=== PATIENT | male | born 1935 | race Caucasian/White ===

== ENCOUNTER 2017-04-16 22:38 | Inpatient (IN) | payer MEDICARE ==
[~2017-04-16] VITALS: Ht 170.2 cm; Wt 76.9 kg
[2017-04-16] MEDS ORDERED: MELA3TAB2 PO (22:57)
[2017-04-16] MEDS ORDERED: DIVA125C PO ×2 (22:57)
[2017-04-16] MEDS ORDERED: ACET325T9 PO ×2 (22:57)
[2017-04-16] MEDS ORDERED: MEMA28CA PO (22:57)
[2017-04-16] MEDS ORDERED: TRAZ50TA15 PO ×2 (22:57)
[2017-04-16 23:29] LABS: BASO # 0.1 x10^3/uL (0.0-0.2); BASO % 1 % (0-3); EOS # 0.5 x10^3/uL (0.0-0.7); EOS % 8 % (0-3); HEMATOCRIT 42.3 % (39.0-53.0); HEMOGLOBIN 14.6 g/dL (13.0-17.5); LYMPH # 1.9 x10^3/uL (1.0-4.8); LYMPH % 29 % (24-48); MEAN CORPUSCULAR HEMOGLOBIN 32 pg (25-35); MEAN CORPUSCULAR HGB CONC 35 g/dL (31-37); MEAN CORPUSCULAR VOLUME 93 fL (79-100); MONO # 0.7 x10^3/uL (0.0-1.1); MONO % 11 % (0-9); NEUT # 3.4 x10^3uL (1.8-7.7); NEUT % 52 % (31-73); PLATELET COUNT 202 x10^3/uL (140-400); RED BLOOD COUNT 4.54 x10^6/uL (4.30-5.70); RED CELL DISTRIBUTION WIDTH 12.7 % (11.5-14.5); WHITE BLOOD COUNT 6.6 x10^3/uL (4.0-11.0)
[2017-04-16 23:35] LABS: BILIRUBIN,URINE NEG (NEG); CLARITY,URINE CLEAR; COLOR,URINE YELLOW; GLUCOSE,URINE NEG (NEG); NITRITE,URINE NEG (NEG); UROBILINOGEN,URINE 0.2 mg/dL (0.2 mg/dL)
[2017-04-16 23:42] LABS: ALBUMIN/GLOBULIN RATIO 1.2 (1.0-1.7); CALCIUM 9.3 mg/dL (8.5-10.1); CREATININE 1.3 mg/dL (0.7-1.3); GFR 52.9; MAGNESIUM 2.2 mg/dL (1.8-2.4); POTASSIUM 3.9 mmol/L (3.5-5.1); TOTAL BILIRUBIN 0.5 mg/dL (0.2-1.0); TOTAL PROTEIN 7.4 g/dL (6.4-8.2)
--- NOTE | 2017-04-16 23:43 | PHYS DOC ---
Adult General Chief Complaint Chief Complaint: PSYCH EVALUATION HPI HPI Patient is a 81-year-old gentleman who presents here today for medical clearance for admission to the [facility] psychiatric unit for increased agitation and aggressive behavior. Patient without any other complaints at this time. No fevers shakes chills nausea vomiting diarrhea chest pain terns breath cough cold rhinorrhea. Review of Systems Review of Systems Review of systems: Constitutional: Denies fever or chills Eyes: Denies change in visual acuity, redness, or eye pain HENT: Denies nasal congestion or sore throat Respiratory: Denies cough or shortness of breath All other systems were reviewed and found to be within normal limits, except as documented in this note. Physical exam: Constitutional: Well developed, well nourished, no acute distress, non-toxic appearance. HENT: Normocephalic, atraumatic, bilateral external ears normal, nose normal. Eyes: PERRLA, EOMI, conjunctiva normal, no discharge. Neck: Normal range of motion, no tenderness, supple, no stridor. Cardiovascular: Heart rate regular rhythm, Lungs & Thorax: Bilateral breath sounds clear to auscultation Abdomen: No abdominal distention. Skin: Warm, dry, no erythema, no rash. Back: Normal spinal curvature Extremities: No tenderness, no cyanosis, no clubbing, ROM intact, no edema. Neurologic: Alert and oriented normal motor function, normal sensory function, no focal deficits noted. Psychologic: Affect normal, Patient's ER physical exam was most remarkable: EKG as interpreted by ER physician reveals: Normal sinus rhythm at a heart rate of [address]-T wave abnormalities. No STEMI Chest x-ray as interpreted by ER physician reveals: Labs reviewed: Assessment and plan: 1. This is a 7-year-old gentleman who presents here today for medical clearance for admission for increased aggressive behavior to the [facility] health unit. Patient is medically cleared for admission. Current Patient Data Lab Results Laboratory Tests Test 04/16/17 23:00 04/16/17 23:05 Urine Collection Type Unknown Urine Color Yellow Urine Clarity Clear Urine pH 5.5 Urine Specific [place] 1.025 Urine Protein 30 mg/dl (NEG-TRACE) Urine Glucose (UA) Neg mg/dL (NEG) Urine Ketones (Stick) 15 mg/dL (NEG) Urine Blood Neg (NEG) Urine Nitrite Neg (NEG) Urine Bilirubin Neg (NEG) Urine Urobilinogen Dipstick 0.2 mg/dL (0.2 mg/dL) Urine Leukocyte Esterase Small (NEG) White Blood Count 6.6 x10^3/uL (4.0-11.0) Red Blood Count 4.54 x10^6/uL (4.30-5.70) Hemoglobin 14.6 g/dL (13.0-17.5) Hematocrit 42.3 % (39.0-53.0) Mean Corpuscular Volume 93 fL (79-100) Mean Corpuscular Hemoglobin 32 pg (25-35) Mean Corpuscular Hemoglobin Concent 35 g/dL (31-37) Red Cell Distribution Width 12.7 % (11.5-14.5) Platelet Count 202 x10^3/uL (140-400) Neutrophils (%) (Auto) 52 % (31-73) Lymphocytes (%) (Auto) 29 % (24-48) Monocytes (%) (Auto) 11 % (0-9) H Eosinophils (%) (Auto) 8 % (0-3) H Basophils (%) (Auto) 1 % (0-3) Neutrophils # (Auto) 3.4 x10^3uL (1.8-7.7) Lymphocytes # (Auto) 1.9 x10^3/uL (1.0-4.8) Monocytes # (Auto) 0.7 x10^3/uL (0.0-1.1) Eosinophils # (Auto) 0.5 x10^3/uL (0.0-0.7) Basophils # (Auto) 0.1 x10^3/uL (0.0-0.2) EKG EKG [] Radiology/Procedures Radiology/Procedures [] Course & Med Decision Making Course & Med Decision Making Pertinent Labs and Imaging studies reviewed. (See chart for details) [] Dragon Disclaimer Dragon Disclaimer This electronic medical record was generated, in whole or in part, using a voice recognition dictation system. Departure Departure: Impression: Primary Impression: Aggressive behavior Disposition: ADMITTED INPATIENT Admitting Physician: Other Condition: STABLE Referrals: CHRISTY ACEVES (PCP) KARELY FREDERICK MD Apr 16, 2017 23:43
[2017-04-17] MEDS ORDERED: METHYL SALICYLATE/MENTHOL TOPICAL OINTMENT 29GM TUBE. TP PRN (00:45)
[2017-04-17 00:59] VITALS: BP 131/73
[2017-04-17] MEDS ORDERED: ACETAMINOPHEN 325 MG TABLET PO PRN (01:00)
[2017-04-17 01:04] LABS: VAL ACID 59 mcg/mL (50-100)
--- NOTE | 2017-04-17 01:08 | EKG ---
[address] [address] Test Date: 2017-04-16 Test Time: 23:30:40 Pat Name: TIMO BANKS Department: Room: [address] [place] [address] Gender: M Telephone Advice Nurse: NELIA : 1935 Requested By: KARELY FREDERICK Order Number: [id number] Reading MD: Alireza Woo Measurements Intervals [place] Rate: 61 P: 124 NH: 242 QRS: 25 QRSD: 68 T: 26 QT: 378 QTc: 382 Interpretive Statements SINUS RHYTHM PROLONGED NH INTERVAL ABNORMAL ECG Electronically Signed On 04-26-2017 16:29:03 [employer] by Alireza Woo
[2017-04-17] MEDS: ACETAMINOPHEN 325 MG TABLET PO SCH ×3 (01:25→19:28)
[2017-04-17] MEDS: traZODone 50 MG TABLET. PO SCH ×4 (01:25→19:27)
[2017-04-17] MEDS: MELATONIN 3 MG TABLET PO SCH ×2 (01:25→19:27)
[2017-04-17] MEDS: DIVALPROEX 125 MG CAP.SPRINK PO SCH ×3 (01:25→19:27)
[2017-04-17 05:50] VITALS: BP 111/60
[2017-04-17] MEDS: MEMANTINE 10 MG TABLET. PO SCH ×2 (08:25→19:28)
[2017-04-17 14:39] LABS: THYROID STIM HORMONE (TSH) 2.469 uIU/mL (0.358-3.740)
[2017-04-17 15:34] VITALS: BP 119/73
--- NOTE | 2017-04-17 18:45 | PDOC ---
Exam Note: Brando Note: Please also refer to the separate dictated note~for this date of service dictated separately.~Patient seen individually. Discussed the patient with Nursing staff reviewed the chart.~Reviewed interim history and current functioning. Reviewed vital signs,~Labs/ Radiology~and current medications noted below. Continue current treatment with the changes noted in the dictated addendum note Assessment: Vital Signs: Vital Signs Date Time Temp Pulse Resp B/P (MAP) Pulse Ox O2 Delivery O2 Flow Rate FiO2 04/17/17 15:34 97.9 71 19 119/73 (88) 98 04/16/17 22:50 Room Air Labs: Laboratory Tests Test 04/16/17 23:00 04/16/17 23:05 Urine Collection Type Unknown Urine Color Yellow Urine Clarity Clear Urine pH 5.5 Urine Specific [place] 1.025 Urine Protein 30 mg/dl (NEG-TRACE) Urine Glucose (UA) Neg mg/dL (NEG) Urine Ketones (Stick) 15 mg/dL (NEG) Urine Blood Neg (NEG) Urine Nitrite Neg (NEG) Urine Bilirubin Neg (NEG) Urine Urobilinogen Dipstick 0.2 mg/dL (0.2 mg/dL) Urine Leukocyte Esterase Small (NEG) White Blood Count 6.6 x10^3/uL (4.0-11.0) Red Blood Count 4.54 x10^6/uL (4.30-5.70) Hemoglobin 14.6 g/dL (13.0-17.5) Hematocrit 42.3 % (39.0-53.0) Mean Corpuscular Volume 93 fL (79-100) Mean Corpuscular Hemoglobin 32 pg (25-35) Mean Corpuscular Hemoglobin Concent 35 g/dL (31-37) Red Cell Distribution Width 12.7 % (11.5-14.5) Platelet Count 202 x10^3/uL (140-400) Neutrophils (%) (Auto) 52 % (31-73) Lymphocytes (%) (Auto) 29 % (24-48) Monocytes (%) (Auto) 11 % (0-9) H Eosinophils (%) (Auto) 8 % (0-3) H Basophils (%) (Auto) 1 % (0-3) Neutrophils # (Auto) 3.4 x10^3uL (1.8-7.7) Lymphocytes # (Auto) 1.9 x10^3/uL (1.0-4.8) Monocytes # (Auto) 0.7 x10^3/uL (0.0-1.1) Eosinophils # (Auto) 0.5 x10^3/uL (0.0-0.7) Basophils # (Auto) 0.1 x10^3/uL (0.0-0.2) Sodium Level 139 mmol/L (136-145) Potassium Level 3.9 mmol/L (3.5-5.1) Chloride Level 102 mmol/L (98-107) Carbon Dioxide Level 34 mmol/L (21-32) H Anion Gap 3 (6-14) L Blood Urea Nitrogen 20 mg/dL (8-26) Creatinine 1.3 mg/dL (0.7-1.3) Estimated GFR (Cockcroft-Gault) 52.9 BUN/Creatinine Ratio 15 (6-20) Glucose Level 85 mg/dL (70-99) Calcium Level 9.3 mg/dL (8.5-10.1) Magnesium Level 2.2 mg/dL (1.8-2.4) Iron Level 63 ug/dL (65-175) L Total Iron Binding Capacity 258 ug/dL (250-450) Iron Saturation 24 % (15-34) Total Bilirubin 0.5 mg/dL (0.2-1.0) Aspartate Amino Transferase (AST) 23 U/L (15-37) Alanine Aminotransferase (ALT) 36 U/L (16-63) Alkaline Phosphatase 57 U/L (46-116) Total Protein 7.4 g/dL (6.4-8.2) Albumin 4.0 g/dL (3.4-5.0) Albumin/Globulin Ratio 1.2 (1.0-1.7) Triglycerides Level 122 mg/dL (0-150) Cholesterol Level 181 mg/dL (0-200) LDL Cholesterol, Calculated 113 mg/dL (0-100) H VLDL Cholesterol, Calculated 24 mg/dL (0-40) Non-HDL Cholesterol Calculated 137 mg/dL (0-129) H HDL Cholesterol 44 mg/dL (40-60) Cholesterol/HDL Ratio 4.0 Vitamin B12 Level 987 pg/mL (247-911) H 25-Hydroxy Vitamin D Total 33.2 ng/mL (30-100) Thyroid Stimulating Hormone (TSH) 2.469 uIU/mL (0.358-3.740) Valproic Acid Level 59 mcg/mL (50-100) Valproic Acid Last Dose Date 04/17/2017 Valproic Acid Last Dose Time 0900 Current Medications: Meds: Current Medications Multi-Ingredient Ointment (Analgesic [place]) 1 shanon PRN QID PRN TP MUSCLE PAIN; Start 04/17/17 at 00:45 Acetaminophen (Tylenol) 650 mg BID PO Last administered on 04/17/17 08:25; Start 04/17/17 at 01:00 Acetaminophen (Tylenol) 650 mg PRN Q8HRS PRN PO PAIN / TEMP; Start 04/17/17 at 01:00 Divalproex Sodium (Depakote Sprinkles) 250 mg DAILY PO Last administered on 08:25; Start 04/17/17 at 09:00 Divalproex Sodium (Depakote Sprinkles) 375 mg HS PO Last administered on 01:25; Start 04/17/17 at 01:00 Trazodone HCl (Desyrel) 75 mg BID@1300,1600 PO Last administered on 04/17/17 16:44; Start 04/17/17 at 13:00 Trazodone HCl (Desyrel) 75 mg HS PO Last administered on 04/17/17 01:25; Start 04/17/17 at 01:00 Melatonin 3 mg HS PO Last administered on 04/17/17 01:25; Start 04/17/17 at 01:00 Memantine (Namenda) 10 mg BID PO Last administered on 04/17/17 08:25; Start 04/17/17 at 09:00 Olanzapine (ZyPREXA ZYDIS) 2.5 mg PRN Q2HR PRN PO PSYCHOSIS; Start 04/17/17 at 10:00 Active Scripts Active Reported Tylenol (Acetaminophen) 325 Mg Tablet 650 Mg PO BID Tylenol (Acetaminophen) 325 Mg Tablet 650 Mg PO PRN Q8HRS PRN Trazodone Hcl 50 Mg Tablet 75 Mg PO BID@1300,1600 Trazodone Hcl 50 Mg Tablet 75 Mg PO HS Namenda Xr (Memantine Hcl) 28 Mg Cap.spr.24 28 Mg PO DAILY Melatonin 3 Mg Tablet 3 Mg PO HS Depakote Sprinkle (Divalproex Sodium) 125 Mg Cap.sprink 375 Mg PO HS Depakote Sprinkle (Divalproex Sodium) 125 Mg Cap.sprink 250 Mg PO DAILY I have reviewed the current psychotropics carefully including drug interactions. Risk benefit ratio favors no change other than as noted in my dictated progress note. 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
[2017-04-17 19:12] LABS: HEMOGLOBIN A1C 5.3 % (4.8-5.6)
[2017-04-17] MEDS: MIRTAZAPINE 7.5 MG TABLET. PO SCH (19:31)
--- NOTE | 2017-04-17 19:56 | HP ---
ADMIT DATE: 04/17/2017 PSYCHIATRIC ADMISSION HISTORY/EVALUATION This note covers elements not covered in my initial note of 04/17/2017. IDENTIFYING DATA: The patient is an 81-year-old male referred to us from [facility] by Dr. Sanjuana Asher, his primary care physician and Dr. Jayjay Abbott, outpatient psychiatrist on account of worsening confusion, being verbally and physically aggressive to staff, exit seeking, pocketing his medications, unprovoked aggression and aggressive with cares. The patient has failed outpatient psychiatric interventions and adjustments in his psychotropics. Had to be on one-on-one status, started on Depakote, all of which has failed over the past 1 or 2 months, resulting in this referral. CHIEF COMPLAINT: "Go there." The patient is quite disorganized, unable to formulate any specific thought processes as I met with him. HISTORY OF PRESENT ILLNESS: The patient has a history of dementia, Alzheimer's vascular type. He has been residing at [facility] [place] for some time. Over the past 1 or 2 months it is noted, he has been verbally, physically aggressive, exit seeking. He has had some sleep and appetite changes, appeared paranoid, depressed, anxious. Dr. Abbott attempted adjustments in his psychotropics, failed all of this resulting in this referral and had been on one-on-one status before the referral. No clear history of bipolar disorder, suicidal or homicidal ideation. PAST PSYCHIATRIC HISTORY: As above. MEDICAL HISTORY: Positive for dysuria, CA prostate. ALLERGIES: NOVOCAIN. CODE STATUS: DNR. DIET: Regular, takes his medications hidden in ice cream. GAIT: Ambulates ad trice, but unsteady. CURRENT PSYCHOTROPICS: Depakote 125 mg in the morning and 375 mg at night, melatonin 3 mg at bedtime, trazodone 75 mg at bedtime and 75 mg b.i.d. Valproic acid level is 59. FAMILY HISTORY: Noncontributory. SOCIAL HISTORY: No history of alcohol, drug abuse, physical, sexual or elder abuse history is noted. Not known to be a perpetrator. MENTAL STATUS EXAMINATION: The patient was seen individually the evening of 04/17/2017. He is oblivious of his surroundings, unable to respond even to his name. Rambling and mumbling in his speech. Insight, judgment, recent and remote memory, attention, concentration, fund of knowledge poor, consistent with his diagnosis. No active suicidal or homicidal ideation. REACTION TO HOSPITALIZATION: The patient oblivious of this. IMPRESSION: Major neurocognitive disorder, Alzheimer, vascular with depression, delusion, behavioral disturbance; anxiety disorder, unspecified; impulse control disorder, unspecified. Rest diagnoses as above. PLAN: Admit to Geropsychiatry Unit at [facility]. I will see the patient daily individually from a psychiatric standpoint, medical followup per Dr. Brown/Dr. Brito. The patient slept just a quarter hour last night and we will start him on Remeron 7.5 mg p.o. at bedtime. Also, start Zoloft 25 mg daily for 3 days, then 50 mg a day. Valproic acid level therapeutic at 59. We will attempt to reduce the scheduled trazodone over time. BOBO VALENZUELA MD DR: REGULO/abiodun JOB#: [id number] / [id number]
[2017-04-17 20:09] LABS: T3 TOTAL 71 ng/dL (71-180); THYROXINE 7.1 ug/dL (4.5-12.0)
--- NOTE | 2017-04-17 21:19 | PDOC ---
Exam Note: Brando Note: Please also refer to the separate dictated note~for this date of service dictated separately.~Patient seen individually. Discussed the patient with Nursing staff reviewed the chart.~Reviewed interim history and current functioning. Reviewed vital signs,~Labs/ Radiology~and current medications noted below. Continue current treatment with the changes noted in the dictated addendum note Assessment: Vital Signs: Vital Signs Date Time Temp Pulse Resp B/P (MAP) Pulse Ox O2 Delivery O2 Flow Rate FiO2 04/17/17 15:34 97.9 71 19 119/73 (88) 98 04/16/17 22:50 Room Air Labs: Laboratory Tests Test 04/16/17 23:00 04/16/17 23:05 Urine Collection Type Unknown Urine Color Yellow Urine Clarity Clear Urine pH 5.5 Urine Specific [place] 1.025 Urine Protein 30 mg/dl (NEG-TRACE) Urine Glucose (UA) Neg mg/dL (NEG) Urine Ketones (Stick) 15 mg/dL (NEG) Urine Blood Neg (NEG) Urine Nitrite Neg (NEG) Urine Bilirubin Neg (NEG) Urine Urobilinogen Dipstick 0.2 mg/dL (0.2 mg/dL) Urine Leukocyte Esterase Small (NEG) White Blood Count 6.6 x10^3/uL (4.0-11.0) Red Blood Count 4.54 x10^6/uL (4.30-5.70) Hemoglobin 14.6 g/dL (13.0-17.5) Hematocrit 42.3 % (39.0-53.0) Mean Corpuscular Volume 93 fL (79-100) Mean Corpuscular Hemoglobin 32 pg (25-35) Mean Corpuscular Hemoglobin Concent 35 g/dL (31-37) Red Cell Distribution Width 12.7 % (11.5-14.5) Platelet Count 202 x10^3/uL (140-400) Neutrophils (%) (Auto) 52 % (31-73) Lymphocytes (%) (Auto) 29 % (24-48) Monocytes (%) (Auto) 11 % (0-9) H Eosinophils (%) (Auto) 8 % (0-3) H Basophils (%) (Auto) 1 % (0-3) Neutrophils # (Auto) 3.4 x10^3uL (1.8-7.7) Lymphocytes # (Auto) 1.9 x10^3/uL (1.0-4.8) Monocytes # (Auto) 0.7 x10^3/uL (0.0-1.1) Eosinophils # (Auto) 0.5 x10^3/uL (0.0-0.7) Basophils # (Auto) 0.1 x10^3/uL (0.0-0.2) Sodium Level 139 mmol/L (136-145) Potassium Level 3.9 mmol/L (3.5-5.1) Chloride Level 102 mmol/L (98-107) Carbon Dioxide Level 34 mmol/L (21-32) H Anion Gap 3 (6-14) L Blood Urea Nitrogen 20 mg/dL (8-26) Creatinine 1.3 mg/dL (0.7-1.3) Estimated GFR (Cockcroft-Gault) 52.9 BUN/Creatinine Ratio 15 (6-20) Glucose Level 85 mg/dL (70-99) Hemoglobin A1c 5.3 % (4.8-5.6) Calcium Level 9.3 mg/dL (8.5-10.1) Magnesium Level 2.2 mg/dL (1.8-2.4) Iron Level 63 ug/dL (65-175) L Total Iron Binding Capacity 258 ug/dL (250-450) Iron Saturation 24 % (15-34) Total Bilirubin 0.5 mg/dL (0.2-1.0) Aspartate Amino Transferase (AST) 23 U/L (15-37) Alanine Aminotransferase (ALT) 36 U/L (16-63) Alkaline Phosphatase 57 U/L (46-116) Total Protein 7.4 g/dL (6.4-8.2) Albumin 4.0 g/dL (3.4-5.0) Albumin/Globulin Ratio 1.2 (1.0-1.7) Triglycerides Level 122 mg/dL (0-150) Cholesterol Level 181 mg/dL (0-200) LDL Cholesterol, Calculated 113 mg/dL (0-100) H VLDL Cholesterol, Calculated 24 mg/dL (0-40) Non-HDL Cholesterol Calculated 137 mg/dL (0-129) H HDL Cholesterol 44 mg/dL (40-60) Cholesterol/HDL Ratio 4.0 Vitamin B12 Level 987 pg/mL (247-911) H 25-Hydroxy Vitamin D Total 33.2 ng/mL (30-100) Thyroid Stimulating Hormone (TSH) 2.469 uIU/mL (0.358-3.740) Thyroxine (T4) 7.1 ug/dL (4.5-12.0) Total Triiodothyronine (TT3) 71 ng/dL (71-180) Valproic Acid Level 59 mcg/mL (50-100) Valproic Acid Last Dose Date 04/17/2017 Valproic Acid Last Dose Time 0900 Rapid Plasma Reagin Pending Current Medications: Meds: Current Medications Multi-Ingredient Ointment (Analgesic [place]) 1 shanon PRN QID PRN TP MUSCLE PAIN; Start 04/17/17 at 00:45 Acetaminophen (Tylenol) 650 mg BID PO Last administered on 04/17/17 19:28; Start 04/17/17 at 01:00 Acetaminophen (Tylenol) 650 mg PRN Q8HRS PRN PO PAIN / TEMP; Start 04/17/17 at 01:00 Divalproex Sodium (Depakote Sprinkles) 250 mg DAILY PO Last administered on 08:25; Start 04/17/17 at 09:00 Divalproex Sodium (Depakote Sprinkles) 375 mg HS PO Last administered on 19:27; Start 04/17/17 at 01:00 Trazodone HCl (Desyrel) 75 mg BID@1300,1600 PO Last administered on 04/17/17 16:44; Start 04/17/17 at 13:00 Trazodone HCl (Desyrel) 75 mg HS PO Last administered on 04/17/17 19:27; Start 04/17/17 at 01:00 Melatonin 3 mg HS PO Last administered on 04/17/17 19:27; Start 04/17/17 at 01:00 Memantine (Namenda) 10 mg BID PO Last administered on 04/17/17 19:28; Start 04/17/17 at 09:00 Olanzapine (ZyPREXA ZYDIS) 2.5 mg PRN Q2HR PRN PO PSYCHOSIS; Start 04/17/17 at 10:00 Sertraline HCl (Zoloft) 25 mg DAILY PO ; Start 04/18/17 at 09:00; Stop at 23:00 Sertraline HCl (Zoloft) 50 mg DAILY PO ; Start 04/21/17 at 09:00 Mirtazapine (Remeron) 7.5 mg QHS PO Last administered on 04/17/17t 19:31; Start 04/17/17 at 21:00 Active Scripts Active Reported Tylenol (Acetaminophen) 325 Mg Tablet 650 Mg PO BID Tylenol (Acetaminophen) 325 Mg Tablet 650 Mg PO PRN Q8HRS PRN Trazodone Hcl 50 Mg Tablet 75 Mg PO BID@1300,1600 Trazodone Hcl 50 Mg Tablet 75 Mg PO HS Namenda Xr (Memantine Hcl) 28 Mg Cap.spr.24 28 Mg PO DAILY Melatonin 3 Mg Tablet 3 Mg PO HS Depakote Sprinkle (Divalproex Sodium) 125 Mg Cap.sprink 375 Mg PO HS Depakote Sprinkle (Divalproex Sodium) 125 Mg Cap.sprink 250 Mg PO DAILY I have reviewed the current psychotropics carefully including drug interactions. Risk benefit ratio favors no change other than as noted in my dictated progress note. Diagnosis: Problems: (1) Aggressive behavior (2) Anxiety disorder (3) Impulse control disorder (4) Dementia, vascular, with depression (5) Dementia, vascular, with delusions (6) Dementia in Alzheimer's disease with depression (7) Dementia in Alzheimer's disease with delusions BOBO VALENZUELA MD Apr 17, 2017 21:19
--- NOTE | 2017-04-18 03:17 | CONS ---
DATE OF CONSULTATION: 04/17/2017 REASON FOR CONSULTATION: Medical management. HISTORY OF PRESENT ILLNESS: The patient is an 81-year-old male patient, a resident at [facility], who was admitted on account of being verbally abusive and physically aggressive, exit seeking, pocketing his medication all this in a background of dementia with behavioral disturbances and delusions. PAST MEDICAL HISTORY: Significant for prostate cancer, urinary incontinence. PAST SURGICAL HISTORY: Unobtainable. PAST PSYCHIATRIC HISTORY: Significant for Alzheimer's dementia, unprovoked aggression, throwing things at people, generalized anxiety disorder. ALLERGIES: HE IS ALLERGIC TO PROCAINE. MEDICATIONS: He is currently on Tylenol 650 mg every 8 hours twice a day scheduled, divalproex sodium 250 mg daily, divalproex 375 mg at bedtime, melatonin 3 mg at bedtime, Namenda extended release 28 mg once a day, trazodone 75 mg at bedtime and trazodone 75 mg p.o. b.i.d. FAMILY HISTORY: Noncontributory. SOCIAL HISTORY: He is apparently a resident at [facility]. He does not smoke, drink alcohol or use any recreational drugs. PHYSICAL EXAMINATION: GENERAL: When I examined him, the patient was sitting comfortably in his chair in no apparent respiratory distress. He was pale, but no jaundice, cyanosis, or thyromegaly. No jugular venous distension. No limb edema. VITAL SIGNS: His heart rate was 71, blood pressure was 119/73, temperature was 97.9, respiratory rate was 19 and oxygen saturation was 98% on room air. HEAD, EYES, EARS. NOSE AND THROAT: Showed normocephalic, atraumatic. NECK: Supple. HEART: Showed normal first and second heart sounds with no gallop, rub or murmur. CHEST: Clear to auscultation. No crepitation or rhonchi. ABDOMEN: Scaphoid, soft, nontender. NEUROLOGIC: He was very confused, almost in a manic state with a flight of ideas; however, all his cranial nerves are intact. EXTREMITIES: He moves extremities without difficulty, ambulates without assistance or assistive device. Strong smell of urine as he probably seems to be incontinent. LABORATORY DATA: He had lab work done, which showed that his white cell count was 6600, hemoglobin 14.5, hematocrit 42, MCV 93 and platelet count of 202,000. His chemistry showed a serum sodium 139, potassium 3.9, chloride 102, bicarbonate 34, anion gap of 3, BUN 20, creatinine 1.3. Estimated GFR was 53 mL per minute. His glucose was 85. Calcium was 9.3. Magnesium 2.2. Serum iron was 63. TIBC was 258 and percent saturation was 24%. His total bilirubin, AST, ALT, alkaline phosphatase are normal. Total protein was 7.4, albumin 4. His serum triglycerides were 122. Total cholesterol 181, LDL was 113, VLDL was 24 and HDL cholesterol was 44. The ratio was only 4. His vitamin B12 was 987 pg/mL and 25-hydroxy vitamin D was 33.2 ng/mL. His TSH was 2.469. Urinalysis showed the urine was yellow, clear with a pH of 5.5, specific gravity of . Small amount of protein. The urine was negative for glucose, trace of ketones, negative for blood, negative for nitrite, bilirubin and small amount of leukocyte esterase. His toxicology screen showed that the valproic acid was 59 mg/mL, which is well within therapeutic range. IMPRESSION: In summary, this is an 81-year-old male patient who was admitted on account of verbally and physically aggressive, exit seeking, pocketing medication, attention seeking. His past medical history is significant for prostate cancer, urinary retention and dysuria. All his lab work seems to be well within acceptable range. He seemed to be medically stable. Thank you, Dr. Blue, for allowing me to participate in the care of this patient. PAUL MCKINLEY MD DR: HOWIE/abiodun JOB#: [id number] / [id number]
[2017-04-18 05:41] VITALS: BP 111/72
[2017-04-18] MEDS: MEMANTINE 10 MG TABLET. PO SCH ×2 (07:47→19:43)
[2017-04-18] MEDS: DIVALPROEX 125 MG CAP.SPRINK PO SCH ×2 (07:47→19:43)
[2017-04-18] MEDS: ACETAMINOPHEN 325 MG TABLET PO SCH ×2 (07:48→19:44)
[2017-04-18] MEDS: SERTRALINE 25 MG TABLET. PO SCH (07:59)
[2017-04-18] MEDS ORDERED: SERTRALINE 25 MG TABLET. PO SCH (14:00)
[2017-04-18] MEDS: traZODone 50 MG TABLET. PO SCH ×3 (14:02→19:45)
[2017-04-18] MEDS: QUEtiapine 25 MG TABLET. PO SCH (14:02)
[2017-04-18 15:54] VITALS: BP 107/68
[2017-04-18] MEDS: MELATONIN 3 MG TABLET PO SCH (19:40)
[2017-04-18] MEDS: MIRTAZAPINE 7.5 MG TABLET. PO SCH (19:43)
--- NOTE | 2017-04-18 20:00 | PDOC ---
Exam Note: Brando Note: Please also refer to the separate dictated note~for this date of service dictated separately.~Patient seen individually. Discussed the patient with Nursing staff reviewed the chart.~Reviewed interim history and current functioning. Reviewed vital signs,~Labs/ Radiology~and current medications noted below. Continue current treatment with the changes noted in the dictated addendum note Assessment: Vital Signs: Vital Signs Date Time Temp Pulse Resp B/P (MAP) Pulse Ox O2 Delivery O2 Flow Rate FiO2 04/18/17 15:54 97.0 76 18 107/68 (81) 97 Room Air I&O Intake and Output 04/18/17 07:00 Intake Total 960 ml Balance 960 ml Intake Oral 960 ml Current Medications: Meds: Current Medications Multi-Ingredient Ointment (Analgesic [place]) 1 shanon PRN QID PRN TP MUSCLE PAIN; Start 04/17/17 at 00:45 Acetaminophen (Tylenol) 650 mg BID PO Last administered on 04/18/17 19:44; Start 04/17/17 at 01:00 Acetaminophen (Tylenol) 650 mg PRN Q8HRS PRN PO PAIN / TEMP; Start 04/17/17 at 01:00 Divalproex Sodium (Depakote Sprinkles) 250 mg DAILY PO Last administered on 07:47; Start 04/17/17 at 09:00 Divalproex Sodium (Depakote Sprinkles) 375 mg HS PO Last administered on 19:43; Start 04/17/17 at 01:00 Trazodone HCl (Desyrel) 75 mg BID@1300,1600 PO Last administered on 04/17/17 16:44; Start 04/17/17 at 13:00; Stop 04/18/17 at 10:25; Status DC Trazodone HCl (Desyrel) 75 mg HS PO Last administered on 04/18/17 19:45; Start 04/17/17 at 01:00 Melatonin 3 mg HS PO Last administered on 04/18/17 19:40; Start 04/17/17 at 01:00 Memantine (Namenda) 10 mg BID PO Last administered on 04/18/17 19:43; Start 04/17/17 at 09:00 Olanzapine (ZyPREXA ZYDIS) 2.5 mg PRN Q2HR PRN PO PSYCHOSIS Last administered on 04/18/17 17:54; Start 04/17/17 at 10:00 Sertraline HCl (Zoloft) 25 mg DAILY PO Last administered on 04/18/17 07:59; Start 04/18/17 at 09:00; Stop 04/20/17 at 23:00 Sertraline HCl (Zoloft) 50 mg DAILY PO ; Start 04/21/17 at 09:00 Mirtazapine (Remeron) 7.5 mg QHS PO Last administered on 04/18/17 19:43; Start 04/17/17 at 21:00 Trazodone HCl (Desyrel) 50 mg BID@1300,1600 PO Last administered on 04/18/17 16:26; Start 04/18/17 at 13:00 Sertraline HCl (Zoloft) 12.5 mg BID92 PO ; Start 04/18/17 at 14:00; Status Cancel Quetiapine Fumarate (SEROquel) 12.5 mg BID92 PO Last administered on 14:02; Start 04/18/17 at 14:00 Active Scripts Active Reported Tylenol (Acetaminophen) 325 Mg Tablet 650 Mg PO BID Tylenol (Acetaminophen) 325 Mg Tablet 650 Mg PO PRN Q8HRS PRN Trazodone Hcl 50 Mg Tablet 75 Mg PO BID@1300,1600 Trazodone Hcl 50 Mg Tablet 75 Mg PO HS Namenda Xr (Memantine Hcl) 28 Mg Cap.spr.24 28 Mg PO DAILY Melatonin 3 Mg Tablet 3 Mg PO HS Depakote Sprinkle (Divalproex Sodium) 125 Mg Cap.sprink 375 Mg PO HS Depakote Sprinkle (Divalproex Sodium) 125 Mg Cap.sprink 250 Mg PO DAILY I have reviewed the current psychotropics carefully including drug interactions. Risk benefit ratio favors no change other than as noted in my dictated progress note. Diagnosis: Problems: (1) Aggressive behavior (2) Anxiety disorder (3) Impulse control disorder (4) Dementia, vascular, with depression (5) Dementia, vascular, with delusions (6) Dementia in Alzheimer's disease with depression (7) Dementia in Alzheimer's disease with delusions BOBO VALENZUELA MD Apr 18, 2017 20:00
[2017-04-19 05:39] VITALS: BP 102/60
[2017-04-19] MEDS: ACETAMINOPHEN 325 MG TABLET PO SCH ×2 (07:39→19:05)
[2017-04-19] MEDS: DIVALPROEX 125 MG CAP.SPRINK PO SCH ×2 (07:40→19:04)
[2017-04-19] MEDS: QUEtiapine 25 MG TABLET. PO SCH ×2 (07:40→13:13)
[2017-04-19] MEDS: MEMANTINE 10 MG TABLET. PO SCH ×2 (07:40→19:05)
[2017-04-19] MEDS: SERTRALINE 25 MG TABLET. PO SCH (07:41)
[2017-04-19] MEDS: traZODone 50 MG TABLET. PO SCH ×3 (13:12→19:05)
[2017-04-19 16:09] VITALS: BP 101/74
[2017-04-19] MEDS: MELATONIN 3 MG TABLET PO SCH (19:04)
[2017-04-19] MEDS ORDERED: MIRTAZAPINE 15 MG TABLET PO SCH (21:00)
--- NOTE | 2017-04-19 22:12 | PDOC ---
Exam Note: Brando Note: Please also refer to the separate dictated note~for this date of service dictated separately.~Patient seen individually. Discussed the patient with Nursing staff reviewed the chart.~Reviewed interim history and current functioning. Reviewed vital signs,~Labs/ Radiology~and current medications noted below. Continue current treatment with the changes noted in the dictated addendum note Assessment: Vital Signs: Vital Signs Date Time Temp Pulse Resp B/P (MAP) Pulse Ox O2 Delivery O2 Flow Rate FiO2 04/19/17 16:09 97.4 62 19 101/74 (83) 100 04/18/17 15:54 Room Air I&O Intake and Output 04/19/17 07:00 Intake Total 480 ml Balance 480 ml Intake Oral 480 ml Current Medications: Meds: Current Medications Multi-Ingredient Ointment (Analgesic [place]) 1 shanon PRN QID PRN TP MUSCLE PAIN; Start 04/17/17 at 00:45 Acetaminophen (Tylenol) 650 mg BID PO Last administered on 04/19/17 19:05; Start 04/17/17 at 01:00 Acetaminophen (Tylenol) 650 mg PRN Q8HRS PRN PO PAIN / TEMP; Start 04/17/17 at 01:00 Divalproex Sodium (Depakote Sprinkles) 250 mg DAILY PO Last administered on 07:40; Start 04/17/17 at 09:00 Divalproex Sodium (Depakote Sprinkles) 375 mg HS PO Last administered on 19:04; Start 04/17/17 at 01:00 Trazodone HCl (Desyrel) 75 mg BID@1300,1600 PO Last administered on 04/17/17 16:44; Start 04/17/17 at 13:00; Stop 04/18/17 at 10:25; Status DC Trazodone HCl (Desyrel) 75 mg HS PO Last administered on 04/19/17 19:05; Start 04/17/17 at 01:00 Melatonin 3 mg HS PO Last administered on 04/19/17 19:04; Start 04/17/17 at 01:00 Memantine (Namenda) 10 mg BID PO Last administered on 04/19/17 19:05; Start 04/17/17 at 09:00 Olanzapine (ZyPREXA ZYDIS) 2.5 mg PRN Q2HR PRN PO PSYCHOSIS Last administered on 04/19/17 20:21; Start 04/17/17 at 10:00 Sertraline HCl (Zoloft) 25 mg DAILY PO Last administered on 04/19/17 07:41; Start 04/18/17 at 09:00; Stop 04/20/17 at 23:00 Sertraline HCl (Zoloft) 50 mg DAILY PO ; Start 04/21/17 at 09:00 Mirtazapine (Remeron) 7.5 mg QHS PO Last administered on 04/18/17 19:43; Start 04/17/17 at 21:00; Stop 04/19/17 at 18:36; Status DC Trazodone HCl (Desyrel) 50 mg BID@1300,1600 PO Last administered on 04/19/17 15:54; Start 04/18/17 at 13:00 Sertraline HCl (Zoloft) 12.5 mg BID92 PO ; Start 04/18/17 at 14:00; Status Cancel Quetiapine Fumarate (SEROquel) 12.5 mg BID92 PO Last administered on 13:13; Start 04/18/17 at 14:00 Mirtazapine (Remeron) 15 mg QHS PO Last administered on 04/19/17 19:12; Start 04/19/17 at 21:00 Active Scripts Active Reported Tylenol (Acetaminophen) 325 Mg Tablet 650 Mg PO BID Tylenol (Acetaminophen) 325 Mg Tablet 650 Mg PO PRN Q8HRS PRN Trazodone Hcl 50 Mg Tablet 75 Mg PO BID@1300,1600 Trazodone Hcl 50 Mg Tablet 75 Mg PO HS Namenda Xr (Memantine Hcl) 28 Mg Cap.spr.24 28 Mg PO DAILY Melatonin 3 Mg Tablet 3 Mg PO HS Depakote Sprinkle (Divalproex Sodium) 125 Mg Cap.sprink 375 Mg PO HS Depakote Sprinkle (Divalproex Sodium) 125 Mg Cap.sprink 250 Mg PO DAILY I have reviewed the current psychotropics carefully including drug interactions. Risk benefit ratio favors no change other than as noted in my dictated progress note. Diagnosis: Problems: (1) Aggressive behavior (2) Anxiety disorder (3) Impulse control disorder (4) Dementia, vascular, with depression (5) Dementia, vascular, with delusions (6) Dementia in Alzheimer's disease with depression (7) Dementia in Alzheimer's disease with delusions BOBO VALENZUELA MD Apr 19, 2017 22:12
--- NOTE | 2017-04-19 22:25 | PN ---
DATE: 04/18/2017 This is a late entry, covers the elements not covered in my initial note, 04/18/2017. SUBJECTIVE: The patient staffed at a treatment team meeting morning of 04/18/2017, seen individually evening of 04/18/2017. He remains confused, irritable, verbally aggressive, paranoid, refuses to get up in the morning, refuses often to open his eyes, often singing in the hallway, which is positive. REVIEW OF SYSTEMS: No CV, , pulmonary, eye, ENT system symptoms on review. Reliability poor. MENTAL STATUS EXAM: Oriented to himself. Insight, judgment, recent and remote memory, attention, concentration, fund of knowledge poor, consistent with his diagnosis as mentioned in my initial note. IMPRESSION: Major neurocognitive disorder, Alzheimer, vascular with depression, delusion, behavioral disturbance. Rest unchanged from initial note. PLAN: The patient is currently on trazodone 75 mg b.i.d. and 75 mg at bedtime. We will reduce the daytime b.i.d. dosage to 50 mg b.i.d. Start Seroquel 12.5 mg at 9 a.m. and 2 p.m. consequent to his paranoia, mood lability, change the Namenda XR to Namenda 10 mg twice a day. Maintain rest of the psychotropics including Depakote and valproic acid level is 59. Adjust further as clinically indicated. MAN Adina VALENZUELA MD DR: REGULO/abiodun JOB#: [id number] / [id number]
[2017-04-20 05:37] VITALS: BP 145/77
[2017-04-20] MEDS: DIVALPROEX 125 MG CAP.SPRINK PO SCH ×2 (08:31→19:46)
[2017-04-20] MEDS: MEMANTINE 10 MG TABLET. PO SCH ×2 (08:31→19:47)
[2017-04-20] MEDS: ACETAMINOPHEN 325 MG TABLET PO SCH ×2 (08:31→19:46)
[2017-04-20] MEDS: QUEtiapine 25 MG TABLET. PO SCH ×2 (08:31→13:18)
[2017-04-20] MEDS: SERTRALINE 25 MG TABLET. PO SCH (08:31)
[2017-04-20] MEDS: traZODone 50 MG TABLET. PO SCH ×3 (13:18→19:47)
[2017-04-20 16:03] VITALS: BP 119/71
[2017-04-20] MEDS: MELATONIN 3 MG TABLET PO SCH (19:46)
[2017-04-20] MEDS: AMITRIPTYLINE HCL 25 MG TABLET PO SCH (19:48)
--- NOTE | 2017-04-20 21:07 | PDOC ---
Exam Note: Brando Note: Please also refer to the separate dictated note~for this date of service dictated separately.~Patient seen individually. Discussed the patient with Nursing staff reviewed the chart.~Reviewed interim history and current functioning. Reviewed vital signs,~Labs/ Radiology~and current medications noted below. Continue current treatment with the changes noted in the dictated addendum note Assessment: Vital Signs: Vital Signs Date Time Temp Pulse Resp B/P (MAP) Pulse Ox O2 Delivery O2 Flow Rate FiO2 04/20/17 16:03 97.8 101 20 119/71 (87) 94 04/18/17 15:54 Room Air I&O Intake and Output 04/20/17 07:00 Intake Total 1200 ml Balance 1200 ml Intake Oral 1200 ml Current Medications: Meds: Current Medications Multi-Ingredient Ointment (Analgesic [place]) 1 shanon PRN QID PRN TP MUSCLE PAIN; Start 04/17/17 at 00:45 Acetaminophen (Tylenol) 650 mg BID PO Last administered on 04/20/17 19:46; Start 04/17/17 at 01:00 Acetaminophen (Tylenol) 650 mg PRN Q8HRS PRN PO PAIN / TEMP; Start 04/17/17 at 01:00 Divalproex Sodium (Depakote Sprinkles) 250 mg DAILY PO Last administered on 08:31; Start 04/17/17 at 09:00 Divalproex Sodium (Depakote Sprinkles) 375 mg HS PO Last administered on 19:46; Start 04/17/17 at 01:00 Trazodone HCl (Desyrel) 75 mg BID@1300,1600 PO Last administered on 04/17/17 16:44; Start 04/17/17 at 13:00; Stop 04/18/17 at 10:25; Status DC Trazodone HCl (Desyrel) 75 mg HS PO Last administered on 04/20/17 19:47; Start 04/17/17 at 01:00 Melatonin 3 mg HS PO Last administered on 04/20/17 19:46; Start 04/17/17 at 01:00 Memantine (Namenda) 10 mg BID PO Last administered on 04/20/17 19:47; Start 04/17/17 at 09:00 Olanzapine (ZyPREXA ZYDIS) 2.5 mg PRN Q2HR PRN PO PSYCHOSIS Last administered on 04/19/17 22:56; Start 04/17/17 at 10:00 Sertraline HCl (Zoloft) 25 mg DAILY PO Last administered on 04/20/17 08:31; Start 04/18/17 at 09:00; Stop 04/20/17 at 23:00 Sertraline HCl (Zoloft) 50 mg DAILY PO ; Start 04/21/17 at 09:00 Mirtazapine (Remeron) 7.5 mg QHS PO Last administered on 04/18/17 19:43; Start 04/17/17 at 21:00; Stop 04/19/17 at 18:36; Status DC Trazodone HCl (Desyrel) 50 mg BID@1300,1600 PO Last administered on 04/20/17 16:28; Start 04/18/17 at 13:00 Sertraline HCl (Zoloft) 12.5 mg BID92 PO ; Start 04/18/17 at 14:00; Status Cancel Quetiapine Fumarate (SEROquel) 12.5 mg BID92 PO Last administered on 13:18; Start 04/18/17 at 14:00 Mirtazapine (Remeron) 15 mg QHS PO Last administered on 04/19/17 19:12; Start 04/19/17 at 21:00; Stop 04/20/17 at 17:41; Status DC Amitriptyline HCl (Elavil) 25 mg QHS PO Last administered on 04/20/17 19:48; Start 04/20/17 at 21:00 Active Scripts Active Reported Tylenol (Acetaminophen) 325 Mg Tablet 650 Mg PO BID Tylenol (Acetaminophen) 325 Mg Tablet 650 Mg PO PRN Q8HRS PRN Trazodone Hcl 50 Mg Tablet 75 Mg PO BID@1300,1600 Trazodone Hcl 50 Mg Tablet 75 Mg PO HS Namenda Xr (Memantine Hcl) 28 Mg Cap.spr.24 28 Mg PO DAILY Melatonin 3 Mg Tablet 3 Mg PO HS Depakote Sprinkle (Divalproex Sodium) 125 Mg Cap.sprink 375 Mg PO HS Depakote Sprinkle (Divalproex Sodium) 125 Mg Cap.sprink 250 Mg PO DAILY I have reviewed the current psychotropics carefully including drug interactions. Risk benefit ratio favors no change other than as noted in my dictated progress note. Diagnosis: Problems: (1) Aggressive behavior (2) Anxiety disorder (3) Impulse control disorder (4) Dementia, vascular, with depression (5) Dementia, vascular, with delusions (6) Dementia in Alzheimer's disease with depression (7) Dementia in Alzheimer's disease with delusions BOBO VALENZUELA MD Apr 20, 2017 21:07
[2017-04-21 06:18] VITALS: BP 142/73
[2017-04-21] MEDS: SERTRALINE 50 MG TABLET. PO SCH (11:55)
[2017-04-21] MEDS: DIVALPROEX 125 MG CAP.SPRINK PO SCH ×2 (11:55→19:26)
[2017-04-21] MEDS: traZODone 50 MG TABLET. PO SCH ×4 (11:55→19:26)
[2017-04-21] MEDS: QUEtiapine 25 MG TABLET. PO SCH ×2 (11:55→15:43)
[2017-04-21] MEDS: ACETAMINOPHEN 325 MG TABLET PO SCH ×2 (11:55→19:27)
[2017-04-21] MEDS: MEMANTINE 10 MG TABLET. PO SCH ×2 (11:55→19:27)
[2017-04-21 15:55] VITALS: BP 105/64
--- NOTE | 2017-04-21 18:36 | PN ---
DATE: 04/20/2017 This is a late entry, covers the elements not covered in my initial note 04/20/2017. I met with the patient in the evening of 04/20/2017. The patient did not sleep at all the previous evening, agitated, pacing, hitting the doors, wandering, quite restless in the morning. REVIEW OF SYSTEMS: No CV, , pulmonary, eye, ENT system symptoms on review. Reliability poor. MENTAL STATUS EXAM: Oriented to himself. Insight, judgment, recent and remote memory, attention, concentration, fund of knowledge poor, consistent with his diagnosis mentioned in my initial note. IMPRESSION: Major neurocognitive disorder, Alzheimer, vascular with delusion, depression, behavioral disturbance. Rest unchanged. PLAN: Change Remeron to Elavil 25 mg at bedtime to help with insomnia and anxiety. Rest unchanged from initial note. MAN Adina VALENZUELA MD DR: REGULO/abiodun JOB#: [id number] / [id number]
--- NOTE | 2017-04-21 18:37 | PN ---
DATE: 04/19/2017 PSYCHIATRIC PROGRESS NOTE This is a late entry for 04/19/2017 covers elements not covered in my initial note of 04/19/2017. SUBJECTIVE: I met with the patient in the evening of 04/19/2017. He was quite agitated the previous evening, slept just 4-3/4 hours, wandering, singing in the hallways, done better during the day on 04/19/2017, asking for ice cream. REVIEW OF SYSTEMS: No CV, , pulmonary, eye, ENT system symptoms on review. Reliability poor. MENTAL STATUS EXAM: Oriented to himself. Insight, judgment, recent and remote memory, attention, concentration, fund of knowledge poor, consistent with his diagnosis as mentioned in my initial note. IMPRESSION: Major neurocognitive disorder, Alzheimer's, vascular with delusion, depression, and behavioral disturbance. Rest unchanged. PLAN: Increase Remeron from 7.5 mg at bedtime to 15 mg at bedtime. Rest unchanged per the initial note. MAN Adina VALENZUELA MD DR: REGULO/abiodun JOB#: [id number] / [id number]
[2017-04-21] MEDS: MELATONIN 3 MG TABLET PO SCH (19:27)
[2017-04-21] MEDS: AMITRIPTYLINE HCL 25 MG TABLET PO SCH (19:27)
--- NOTE | 2017-04-21 20:10 | PDOC ---
Exam Note: Brando Note: Please also refer to the separate dictated note~for this date of service dictated separately.~Patient seen individually. Discussed the patient with Nursing staff reviewed the chart.~Reviewed interim history and current functioning. Reviewed vital signs,~Labs/ Radiology~and current medications noted below. Continue current treatment with the changes noted in the dictated addendum note Assessment: Vital Signs: Vital Signs Date Time Temp Pulse Resp B/P (MAP) Pulse Ox O2 Delivery O2 Flow Rate FiO2 04/21/17 15:55 97.2 90 18 105/64 (78) 99 04/18/17 15:54 Room Air I&O Intake and Output 04/21/17 07:00 Intake Total 1080 ml Balance 1080 ml Intake Oral 1080 ml Current Medications: Meds: Current Medications Multi-Ingredient Ointment (Analgesic [place]) 1 shanon PRN QID PRN TP MUSCLE PAIN; Start 04/17/17 at 00:45 Acetaminophen (Tylenol) 650 mg BID PO Last administered on 04/21/17 19:27; Start 04/17/17 at 01:00 Acetaminophen (Tylenol) 650 mg PRN Q8HRS PRN PO PAIN / TEMP; Start 04/17/17 at 01:00 Divalproex Sodium (Depakote Sprinkles) 250 mg DAILY PO Last administered on 11:55; Start 04/17/17 at 09:00 Divalproex Sodium (Depakote Sprinkles) 375 mg HS PO Last administered on 19:26; Start 04/17/17 at 01:00 Trazodone HCl (Desyrel) 75 mg BID@1300,1600 PO Last administered on 04/17/17 16:44; Start 04/17/17 at 13:00; Stop 04/18/17 at 10:25; Status DC Trazodone HCl (Desyrel) 75 mg HS PO Last administered on 04/21/17 19:26; Start 04/17/17 at 01:00 Melatonin 3 mg HS PO Last administered on 04/21/17 19:27; Start 04/17/17 at 01:00 Memantine (Namenda) 10 mg BID PO Last administered on 04/21/17 19:27; Start 04/17/17 at 09:00 Olanzapine (ZyPREXA ZYDIS) 2.5 mg PRN Q2HR PRN PO PSYCHOSIS Last administered on 04/19/17 22:56; Start 04/17/17 at 10:00 Sertraline HCl (Zoloft) 25 mg DAILY PO Last administered on 04/20/17 08:31; Start 04/18/17 at 09:00; Stop 04/20/17 at 23:00; Status DC Sertraline HCl (Zoloft) 50 mg DAILY PO Last administered on 04/21/17 11:55; Start 04/21/17 at 09:00 Mirtazapine (Remeron) 7.5 mg QHS PO Last administered on 04/18/17 19:43; Start 04/17/17 at 21:00; Stop 04/19/17 at 18:36; Status DC Trazodone HCl (Desyrel) 50 mg BID@1300,1600 PO Last administered on 04/21/17 16:43; Start 04/18/17 at 13:00 Sertraline HCl (Zoloft) 12.5 mg BID92 PO ; Start 04/18/17 at 14:00; Status Cancel Quetiapine Fumarate (SEROquel) 12.5 mg BID92 PO Last administered on 15:43; Start 04/18/17 at 14:00 Mirtazapine (Remeron) 15 mg QHS PO Last administered on 04/19/17 19:12; Start 04/19/17 at 21:00; Stop 04/20/17 at 17:41; Status DC Amitriptyline HCl (Elavil) 25 mg QHS PO Last administered on 04/21/17 19:27; Start 04/20/17 at 21:00 Active Scripts Active Reported Tylenol (Acetaminophen) 325 Mg Tablet 650 Mg PO BID Tylenol (Acetaminophen) 325 Mg Tablet 650 Mg PO PRN Q8HRS PRN Trazodone Hcl 50 Mg Tablet 75 Mg PO BID@1300,1600 Trazodone Hcl 50 Mg Tablet 75 Mg PO HS Namenda Xr (Memantine Hcl) 28 Mg Cap.spr.24 28 Mg PO DAILY Melatonin 3 Mg Tablet 3 Mg PO HS Depakote Sprinkle (Divalproex Sodium) 125 Mg Cap.sprink 375 Mg PO HS Depakote Sprinkle (Divalproex Sodium) 125 Mg Cap.sprink 250 Mg PO DAILY I have reviewed the current psychotropics carefully including drug interactions. Risk benefit ratio favors no change other than as noted in my dictated progress note. Diagnosis: Problems: (1) Aggressive behavior (2) Anxiety disorder (3) Impulse control disorder (4) Dementia, vascular, with depression (5) Dementia, vascular, with delusions (6) Dementia in Alzheimer's disease with depression (7) Dementia in Alzheimer's disease with delusions BOBO VALENZUELA MD Apr 21, 2017 20:10
[2017-04-22 05:46] VITALS: BP 130/77
[2017-04-22 08:00] LABS: BASO # 0.1 x10^3/uL (0.0-0.2); BASO % 1 % (0-3); EOS # 0.6 x10^3/uL (0.0-0.7); EOS % 5 % (0-3); HEMOGLOBIN 15.4 g/dL (13.0-17.5); LYMPH # 1.9 x10^3/uL (1.0-4.8); LYMPH % 16 % (24-48); MEAN CORPUSCULAR HEMOGLOBIN 32 pg (25-35); MEAN CORPUSCULAR HGB CONC 34 g/dL (31-37); MEAN CORPUSCULAR VOLUME 94 fL (79-100); MONO # 1.3 x10^3/uL (0.0-1.1); MONO % 12 % (0-9); NEUT # 7.8 x10^3uL (1.8-7.7); NEUT % 67 % (31-73); PLATELET COUNT 203 x10^3/uL (140-400); RED BLOOD COUNT 4.79 x10^6/uL (4.30-5.70); RED CELL DISTRIBUTION WIDTH 12.7 % (11.5-14.5); WHITE BLOOD COUNT 11.7 x10^3/uL (4.0-11.0)
[2017-04-22] MEDS: MEMANTINE 10 MG TABLET. PO SCH ×2 (08:11→19:23)
[2017-04-22] MEDS: QUEtiapine 25 MG TABLET. PO SCH ×2 (08:12→13:17)
[2017-04-22] MEDS: SERTRALINE 50 MG TABLET. PO SCH (08:12)
[2017-04-22] MEDS: ACETAMINOPHEN 325 MG TABLET PO SCH ×2 (08:13→19:22)
[2017-04-22] MEDS: DIVALPROEX 125 MG CAP.SPRINK PO SCH ×2 (08:13→19:22)
[2017-04-22 08:31] LABS: ALBUMIN/GLOBULIN RATIO 1.1 (1.0-1.7); CALCIUM 9.5 mg/dL (8.5-10.1); CREATININE 1.3 mg/dL (0.7-1.3); GFR 52.9; POTASSIUM 4.6 mmol/L (3.5-5.1); TOTAL BILIRUBIN 0.6 mg/dL (0.2-1.0); TOTAL PROTEIN 7.7 g/dL (6.4-8.2)
--- NOTE | 2017-04-22 12:22 | PN ---
DATE: 04/21/2017 PSYCHIATRIC PROGRESS NOTE This is a late entry for 04/21/2017 covers elements not covered in my initial note of 04/21/2017. SUBJECTIVE: I met with the patient evening of 04/21/2017. The patient had a good evening the previous evening, slept 7-1/4 hours, slept until about 11 a.m. He seems to be making up on his sleep, which he had not slept for a couple of days before that and the amitriptyline seems to be very helpful. Morning of 04/21/2017 per nursing report, he was "grumpy" agitated, but less aggressive after he received his a.m. medications, little irritable during the music group. REVIEW OF SYSTEMS: No CV, , pulmonary, eye, ENT system symptoms on review. Reliability poor. MENTAL STATUS EXAM: Oriented to himself. Insight, judgment, recent and remote memory, attention, concentration, fund of knowledge poor, consistent with his diagnosis mentioned in my initial note. IMPRESSION: Major neurocognitive disorder, Alzheimer, vascular with delusion, depression, behavioral disturbance. Rest unchanged. PLAN: Continue current psychotropics mentioned in my initial note, like to see how he does now that he is sleeping better before we increase the Seroquel or Zoloft. Maintain Namenda, Depakote, melatonin, trazodone, amitriptyline for now. MAN Adina VALENZUELA MD DR: REGULO/abiodun JOB#: [id number] / [id number]
[2017-04-22] MEDS: traZODone 50 MG TABLET. PO SCH ×3 (13:17→19:23)
[2017-04-22 14:06] LABS: % BANDS 4 % (0-9); % BASOS 1 % (0-3); % LYMPHS 11 % (24-48); % MONOS 16 % (0-10); % SEGS 68 % (35-66); PLT ESTIMATE ADEQUATE (ADEQUATE)
[2017-04-22 15:15] LABS: BASO # 0.1 x10^3/uL (0.0-0.2); BASO % 1 % (0-3); EOS # 0.5 x10^3/uL (0.0-0.7); EOS % 6 % (0-3); HEMATOCRIT 41.5 % (39.0-53.0); HEMOGLOBIN 14.4 g/dL (13.0-17.5); LYMPH # 1.5 x10^3/uL (1.0-4.8); LYMPH % 19 % (24-48); MEAN CORPUSCULAR HEMOGLOBIN 32 pg (25-35); MEAN CORPUSCULAR HGB CONC 35 g/dL (31-37); MEAN CORPUSCULAR VOLUME 93 fL (79-100); MONO # 0.9 x10^3/uL (0.0-1.1); MONO % 11 % (0-9); NEUT # 5.1 x10^3uL (1.8-7.7); NEUT % 63 % (31-73); PLATELET COUNT 184 x10^3/uL (140-400); RED BLOOD COUNT 4.47 x10^6/uL (4.30-5.70); RED CELL DISTRIBUTION WIDTH 12.7 % (11.5-14.5); WHITE BLOOD COUNT 8.1 x10^3/uL (4.0-11.0)
[2017-04-22 16:05] VITALS: BP 132/72
[2017-04-22] MEDS: MELATONIN 3 MG TABLET PO SCH (19:22)
[2017-04-22] MEDS: AMITRIPTYLINE HCL 25 MG TABLET PO SCH (19:22)
--- NOTE | 2017-04-22 20:08 | PDOC ---
Exam Note: Brando Note: Please also refer to the separate dictated note~for this date of service dictated separately.~Patient seen individually. Discussed the patient with Nursing staff reviewed the chart.~Reviewed interim history and current functioning. Reviewed vital signs,~Labs/ Radiology~and current medications noted below. Continue current treatment with the changes noted in the dictated addendum note Assessment: Vital Signs: Vital Signs Date Time Temp Pulse Resp B/P (MAP) Pulse Ox O2 Delivery O2 Flow Rate FiO2 04/22/17 16:05 97.2 74 18 132/72 (92) 94 Room Air I&O Intake and Output 04/22/17 06:59 Intake Total 480 ml Balance 480 ml Intake Oral 480 ml Labs: Laboratory Tests Test 04/22/17 07:45 04/22/17 15:08 White Blood Count 11.7 x10^3/uL (4.0-11.0) #H 8.1 x10^3/uL (4.0-11.0) Red Blood Count 4.79 x10^6/uL (4.30-5.70) 4.47 x10^6/uL (4.30-5.70) Hemoglobin 15.4 g/dL (13.0-17.5) 14.4 g/dL (13.0-17.5) Hematocrit 45.0 % (39.0-53.0) 41.5 % (39.0-53.0) Mean Corpuscular Volume 94 fL (79-100) 93 fL (79-100) Mean Corpuscular Hemoglobin 32 pg (25-35) 32 pg (25-35) Mean Corpuscular Hemoglobin Concent 34 g/dL (31-37) 35 g/dL (31-37) Red Cell Distribution Width 12.7 % (11.5-14.5) 12.7 % (11.5-14.5) Platelet Count 203 x10^3/uL (140-400) 184 x10^3/uL (140-400) Neutrophils (%) (Auto) 67 % (31-73) 63 % (31-73) Lymphocytes (%) (Auto) 16 % (24-48) L 19 % (24-48) L Monocytes (%) (Auto) 12 % (0-9) H 11 % (0-9) H Eosinophils (%) (Auto) 5 % (0-3) H 6 % (0-3) H Basophils (%) (Auto) 1 % (0-3) 1 % (0-3) Neutrophils # (Auto) 7.8 x10^3uL (1.8-7.7) H 5.1 x10^3uL (1.8-7.7) Lymphocytes # (Auto) 1.9 x10^3/uL (1.0-4.8) 1.5 x10^3/uL (1.0-4.8) Monocytes # (Auto) 1.3 x10^3/uL (0.0-1.1) H 0.9 x10^3/uL (0.0-1.1) Eosinophils # (Auto) 0.6 x10^3/uL (0.0-0.7) 0.5 x10^3/uL (0.0-0.7) Basophils # (Auto) 0.1 x10^3/uL (0.0-0.2) 0.1 x10^3/uL (0.0-0.2) Segmented Neutrophils % 68 % (35-66) H Band Neutrophils % 4 % (0-9) Lymphocytes % 11 % (24-48) L Monocytes % 16 % (0-10) H Basophils % 1 % (0-3) Platelet Estimate Adequate (ADEQUATE) Sodium Level 144 mmol/L (136-145) Potassium Level 4.6 mmol/L (3.5-5.1) Chloride Level 105 mmol/L (98-107) Carbon Dioxide Level 31 mmol/L (21-32) Anion Gap 8 (6-14) Blood Urea Nitrogen 23 mg/dL (8-26) Creatinine 1.3 mg/dL (0.7-1.3) Estimated GFR (Cockcroft-Gault) 52.9 BUN/Creatinine Ratio 18 (6-20) Glucose Level 102 mg/dL (70-99) H Calcium Level 9.5 mg/dL (8.5-10.1) Total Bilirubin 0.6 mg/dL (0.2-1.0) Aspartate Amino Transferase (AST) 29 U/L (15-37) Alanine Aminotransferase (ALT) 52 U/L (16-63) Alkaline Phosphatase 60 U/L (46-116) Total Protein 7.7 g/dL (6.4-8.2) Albumin 4.0 g/dL (3.4-5.0) Albumin/Globulin Ratio 1.1 (1.0-1.7) Current Medications: Meds: Current Medications Multi-Ingredient Ointment (Analgesic [place]) 1 shanon PRN QID PRN TP MUSCLE PAIN; Start 04/17/17 at 00:45 Acetaminophen (Tylenol) 650 mg BID PO Last administered on 04/22/17 19:22; Start 04/17/17 at 01:00 Acetaminophen (Tylenol) 650 mg PRN Q8HRS PRN PO PAIN / TEMP; Start 04/17/17 at 01:00 Divalproex Sodium (Depakote Sprinkles) 250 mg DAILY PO Last administered on 08:13; Start 04/17/17 at 09:00 Divalproex Sodium (Depakote Sprinkles) 375 mg HS PO Last administered on 19:22; Start 04/17/17 at 01:00 Trazodone HCl (Desyrel) 75 mg BID@1300,1600 PO Last administered on 04/17/17 16:44; Start 04/17/17 at 13:00; Stop 04/18/17 at 10:25; Status DC Trazodone HCl (Desyrel) 75 mg HS PO Last administered on 04/22/17 19:23; Start 04/17/17 at 01:00 Melatonin 3 mg HS PO Last administered on 04/22/17 19:22; Start 04/17/17 at 01:00 Memantine (Namenda) 10 mg BID PO Last administered on 04/22/17 19:23; Start 04/17/17 at 09:00 Olanzapine (ZyPREXA ZYDIS) 2.5 mg PRN Q2HR PRN PO PSYCHOSIS Last administered on 04/19/17 22:56; Start 04/17/17 at 10:00 Sertraline HCl (Zoloft) 25 mg DAILY PO Last administered on 04/20/17 08:31; Start 04/18/17 at 09:00; Stop 04/20/17 at 23:00; Status DC Sertraline HCl (Zoloft) 50 mg DAILY PO Last administered on 04/22/17 08:12; Start 04/21/17 at 09:00 Mirtazapine (Remeron) 7.5 mg QHS PO Last administered on 04/18/17 19:43; Start 04/17/17 at 21:00; Stop 04/19/17 at 18:36; Status DC Trazodone HCl (Desyrel) 50 mg BID@1300,1600 PO Last administered on 04/22/17 16:00; Start 04/18/17 at 13:00 Sertraline HCl (Zoloft) 12.5 mg BID92 PO ; Start 04/18/17 at 14:00; Status Cancel Quetiapine Fumarate (SEROquel) 12.5 mg BID92 PO Last administered on 13:17; Start 04/18/17 at 14:00 Mirtazapine (Remeron) 15 mg QHS PO Last administered on 04/19/17 19:12; Start 04/19/17 at 21:00; Stop 04/20/17 at 17:41; Status DC Amitriptyline HCl (Elavil) 25 mg QHS PO Last administered on 04/22/17 19:22; Start 04/20/17 at 21:00 Active Scripts Active Reported Tylenol (Acetaminophen) 325 Mg Tablet 650 Mg PO BID Tylenol (Acetaminophen) 325 Mg Tablet 650 Mg PO PRN Q8HRS PRN Trazodone Hcl 50 Mg Tablet 75 Mg PO BID@1300,1600 Trazodone Hcl 50 Mg Tablet 75 Mg PO HS Namenda Xr (Memantine Hcl) 28 Mg Cap.spr.24 28 Mg PO DAILY Melatonin 3 Mg Tablet 3 Mg PO HS Depakote Sprinkle (Divalproex Sodium) 125 Mg Cap.sprink 375 Mg PO HS Depakote Sprinkle (Divalproex Sodium) 125 Mg Cap.sprink 250 Mg PO DAILY I have reviewed the current psychotropics carefully including drug interactions. Risk benefit ratio favors no change other than as noted in my dictated progress note. Diagnosis: Problems: (1) Aggressive behavior (2) Anxiety disorder (3) Impulse control disorder (4) Dementia, vascular, with depression (5) Dementia, vascular, with delusions (6) Dementia in Alzheimer's disease with depression (7) Dementia in Alzheimer's disease with delusions BOBO VALENZUELA MD Apr 22, 2017 20:08
[2017-04-23 05:14] VITALS: BP 106/63
[2017-04-23] MEDS: MEMANTINE 10 MG TABLET. PO SCH ×2 (07:29→19:37)
[2017-04-23] MEDS: ACETAMINOPHEN 325 MG TABLET PO SCH ×2 (07:30→19:40)
[2017-04-23] MEDS: DIVALPROEX 125 MG CAP.SPRINK PO SCH ×2 (07:30→19:39)
[2017-04-23] MEDS: SERTRALINE 50 MG TABLET. PO SCH (07:30)
[2017-04-23] MEDS: QUEtiapine 25 MG TABLET. PO SCH ×2 (07:30→14:53)
[2017-04-23 12:24] LABS: BACTERIA,URINE MOD /HPF (0-FEW); BILIRUBIN,URINE NEG (NEG); CLARITY,URINE CLOUDY; COLOR,URINE AMBER; GLUCOSE,URINE NEG (NEG); NITRITE,URINE NEG (NEG); RBC,URINE OCC /HPF (0-2); SQUAMOUS EPITHELIAL CELL,UR OCC /LPF; UROBILINOGEN,URINE 1 mg/dL (0.2 mg/dL); WBC,URINE >40 /HPF (0-4)
[2017-04-23] MEDS: traZODone 50 MG TABLET. PO SCH ×2 (14:54→16:08)
[2017-04-23 15:51] VITALS: BP 121/69
[2017-04-23] MEDS: MELATONIN 3 MG TABLET PO SCH (19:40)
[2017-04-23] MEDS: AMITRIPTYLINE HCL 50 MG TABLET PO SCH (19:42)
[2017-04-23] MEDS: traZODone 100 MG TABLET. PO SCH (19:42)
--- NOTE | 2017-04-23 19:51 | PDOC ---
Exam Note: Brando Note: Please also refer to the separate dictated note~for this date of service dictated separately.~Patient seen individually. Discussed the patient with Nursing staff reviewed the chart.~Reviewed interim history and current functioning. Reviewed vital signs,~Labs/ Radiology~and current medications noted below. Continue current treatment with the changes noted in the dictated addendum note Assessment: Vital Signs: Vital Signs Date Time Temp Pulse Resp B/P (MAP) Pulse Ox O2 Delivery O2 Flow Rate FiO2 04/23/17 15:51 97.3 75 18 121/69 (86) 96 04/22/17 16:05 Room Air I&O Intake and Output 04/23/17 07:00 Intake Total 960 ml Balance 960 ml Intake Oral 960 ml # Voids 1 Labs: Laboratory Tests Test 04/23/17 12:06 Urine Collection Type Unknown Urine Color Rita Urine Clarity Cloudy Urine pH 5.5 Urine Specific [place] 1.020 Urine Protein Trace (NEG-TRACE) Urine Glucose (UA) Neg mg/dL (NEG) Urine Ketones (Stick) Trace mg/dL (NEG) Urine Blood Trace (NEG) Urine Nitrite Neg (NEG) Urine Bilirubin Neg (NEG) Urine Urobilinogen Dipstick 1 mg/dL (0.2 mg/dL) Urine Leukocyte Esterase Mod (NEG) Urine RBC Occ /HPF (0-2) Urine WBC >40 /HPF (0-4) Urine Squamous Epithelial Cells Occ /LPF Urine Bacteria Mod /HPF (0-FEW) Current Medications: Meds: Current Medications Multi-Ingredient Ointment (Analgesic [employer]) 1 shanon PRN QID PRN TP MUSCLE PAIN; Start 04/17/17 at 00:45 Acetaminophen (Tylenol) 650 mg BID PO Last administered on 04/23/17 19:40; Start 04/17/17 at 01:00 Acetaminophen (Tylenol) 650 mg PRN Q8HRS PRN PO PAIN / TEMP; Start 04/17/17 at 01:00 Divalproex Sodium (Depakote Sprinkles) 250 mg DAILY PO Last administered on 07:30; Start 04/17/17 at 09:00 Divalproex Sodium (Depakote Sprinkles) 375 mg HS PO Last administered on 19:39; Start 04/17/17 at 01:00 Trazodone HCl (Desyrel) 75 mg BID@1300,1600 PO Last administered on 04/17/17 16:44; Start 04/17/17 at 13:00; Stop 04/18/17 at 10:25; Status DC Trazodone HCl (Desyrel) 75 mg HS PO Last administered on 04/22/17 19:23; Start 04/17/17 at 01:00; Stop 04/23/17 at 16:46; Status DC Melatonin 3 mg HS PO Last administered on 04/23/17 19:40; Start 04/17/17 at 01:00 Memantine (Namenda) 10 mg BID PO Last administered on 04/23/17 19:37; Start 04/17/17 at 09:00 Olanzapine (ZyPREXA ZYDIS) 2.5 mg PRN Q2HR PRN PO PSYCHOSIS Last administered on 04/19/17 22:56; Start 04/17/17 at 10:00 Sertraline HCl (Zoloft) 25 mg DAILY PO Last administered on 04/20/17 08:31; Start 04/18/17 at 09:00; Stop 04/20/17 at 23:00; Status DC Sertraline HCl (Zoloft) 50 mg DAILY PO Last administered on 04/23/17 07:30; Start 04/21/17 at 09:00 Mirtazapine (Remeron) 7.5 mg QHS PO Last administered on 04/18/17 19:43; Start 04/17/17 at 21:00; Stop 04/19/17 at 18:36; Status DC Trazodone HCl (Desyrel) 50 mg BID@1300,1600 PO Last administered on 04/23/17 16:08; Start 04/18/17 at 13:00 Sertraline HCl (Zoloft) 12.5 mg BID92 PO ; Start 04/18/17 at 14:00; Status Cancel Quetiapine Fumarate (SEROquel) 12.5 mg BID92 PO Last administered on 14:53; Start 04/18/17 at 14:00 Mirtazapine (Remeron) 15 mg QHS PO Last administered on 04/19/17 19:12; Start 04/19/17 at 21:00; Stop 04/20/17 at 17:41; Status DC Amitriptyline HCl (Elavil) 25 mg QHS PO Last administered on 04/22/17 19:22; Start 04/20/17 at 21:00; Stop 04/23/17 at 16:46; Status DC Amitriptyline HCl (Elavil) 50 mg QHS PO Last administered on 04/23/17 19:42; Start 04/23/17 at 21:00 Trazodone HCl (Desyrel) 100 mg HS PO Last administered on 04/23/17 19:42; Start 04/23/17 at 21:00 Active Scripts Active Reported Tylenol (Acetaminophen) 325 Mg Tablet 650 Mg PO BID Tylenol (Acetaminophen) 325 Mg Tablet 650 Mg PO PRN Q8HRS PRN Trazodone Hcl 50 Mg Tablet 75 Mg PO BID@1300,1600 Trazodone Hcl 50 Mg Tablet 75 Mg PO HS Namenda Xr (Memantine Hcl) 28 Mg Cap.spr.24 28 Mg PO DAILY Melatonin 3 Mg Tablet 3 Mg PO HS Depakote Sprinkle (Divalproex Sodium) 125 Mg Cap.sprink 375 Mg PO HS Depakote Sprinkle (Divalproex Sodium) 125 Mg Cap.sprink 250 Mg PO DAILY I have reviewed the current psychotropics carefully including drug interactions. Risk benefit ratio favors no change other than as noted in my dictated progress note. Diagnosis: Problems: (1) Aggressive behavior (2) Anxiety disorder (3) Impulse control disorder (4) Dementia, vascular, with depression (5) Dementia, vascular, with delusions (6) Dementia in Alzheimer's disease with depression (7) Dementia in Alzheimer's disease with delusions BOBO VALENZUELA MD Apr 23, 2017 19:51
[2017-04-24 05:22] VITALS: BP 115/55
--- NOTE | 2017-04-24 08:47 | PN ---
DATE: 04/22/2017 This late entry 04/22/2017 covers elements not covered in my initial note 04/22/2017, met with the patient evening of 04/22/2017. The patient slept 1-1/2 hours previous evening despite the amitriptyline 25 mg, pleasantly confused just after lunch. He was paranoid. States someone was trying to kill him. Sat with him in his room and he did better after that. REVIEW OF SYSTEMS: No CV, , pulmonary, eye, ENT system symptoms on review. Reliability poor. MENTAL STATUS EXAM: Oriented to himself. Insight, judgment, recent and remote memory, attention, concentration, fund of knowledge poor, consistent with his diagnosis mentioned in my initial note. IMPRESSION: Major neurocognitive disorder, Alzheimer, vascular with depression, delusion, behavioral disturbance. Rest unchanged. PLAN: Starting 04/23/2017, we will increase the amitriptyline to 50 mg at bedtime. Continue trazodone 50 mg b.i.d., increase the bedtime dosage to 100 mg. Adjust further as clinically indicated. MAN Adina VALENZUELA MD DR: REGULO/abiodun JOB#: [id number] / [id number]
[2017-04-24] MEDS: DIVALPROEX 125 MG CAP.SPRINK PO SCH ×2 (08:51→20:17)
[2017-04-24] MEDS: MEMANTINE 10 MG TABLET. PO SCH ×2 (08:51→20:17)
[2017-04-24] MEDS: SERTRALINE 50 MG TABLET. PO SCH (08:51)
[2017-04-24] MEDS: QUEtiapine 25 MG TABLET. PO SCH ×2 (08:51→14:05)
[2017-04-24] MEDS: ACETAMINOPHEN 325 MG TABLET PO SCH ×2 (08:52→20:17)
[2017-04-24] MEDS: traZODone 50 MG TABLET. PO SCH ×2 (14:05→16:33)
[2017-04-24 16:02] VITALS: BP 111/76
--- NOTE | 2017-04-24 19:47 | PDOC ---
Exam Note: Brando Note: Please also refer to the separate dictated note~for this date of service dictated separately.~Patient seen individually. Discussed the patient with Nursing staff reviewed the chart.~Reviewed interim history and current functioning. Reviewed vital signs,~Labs/ Radiology~and current medications noted below. Continue current treatment with the changes noted in the dictated addendum note Assessment: Vital Signs: Vital Signs Date Time Temp Pulse Resp B/P (MAP) Pulse Ox O2 Delivery O2 Flow Rate FiO2 04/24/17 16:02 97.8 69 18 111/76 (88) 96 04/24/17 05:22 Room Air I&O Intake and Output 04/24/17 06:59 Intake Total 1200 ml Balance 1200 ml Intake Oral 1200 ml # Voids 1 Current Medications: Meds: Current Medications Multi-Ingredient Ointment (Analgesic [place]) 1 shanon PRN QID PRN TP MUSCLE PAIN; Start 04/17/17 at 00:45 Acetaminophen (Tylenol) 650 mg BID PO Last administered on 04/24/17 08:52; Start 04/17/17 at 01:00 Acetaminophen (Tylenol) 650 mg PRN Q8HRS PRN PO PAIN / TEMP; Start 04/17/17 at 01:00 Divalproex Sodium (Depakote Sprinkles) 250 mg DAILY PO Last administered on 08:51; Start 04/17/17 at 09:00 Divalproex Sodium (Depakote Sprinkles) 375 mg HS PO Last administered on 19:39; Start 04/17/17 at 01:00 Trazodone HCl (Desyrel) 75 mg BID@1300,1600 PO Last administered on 04/17/17 16:44; Start 04/17/17 at 13:00; Stop 04/18/17 at 10:25; Status DC Trazodone HCl (Desyrel) 75 mg HS PO Last administered on 04/22/17 19:23; Start 04/17/17 at 01:00; Stop 04/23/17 at 16:46; Status DC Melatonin 3 mg HS PO Last administered on 04/23/17 19:40; Start 04/17/17 at 01:00 Memantine (Namenda) 10 mg BID PO Last administered on 04/24/17 08:51; Start 04/17/17 at 09:00 Olanzapine (ZyPREXA ZYDIS) 2.5 mg PRN Q2HR PRN PO PSYCHOSIS Last administered on 04/24/17 01:16; Start 04/17/17 at 10:00 Sertraline HCl (Zoloft) 25 mg DAILY PO Last administered on 04/20/17 08:31; Start 04/18/17 at 09:00; Stop 04/20/17 at 23:00; Status DC Sertraline HCl (Zoloft) 50 mg DAILY PO Last administered on 04/24/17 08:51; Start 04/21/17 at 09:00 Mirtazapine (Remeron) 7.5 mg QHS PO Last administered on 04/18/17 19:43; Start 04/17/17 at 21:00; Stop 04/19/17 at 18:36; Status DC Trazodone HCl (Desyrel) 50 mg BID@1300,1600 PO Last administered on 04/24/17 16:33; Start 04/18/17 at 13:00 Sertraline HCl (Zoloft) 12.5 mg BID92 PO ; Start 04/18/17 at 14:00; Status Cancel Quetiapine Fumarate (SEROquel) 12.5 mg BID92 PO Last administered on 14:05; Start 04/18/17 at 14:00 Mirtazapine (Remeron) 15 mg QHS PO Last administered on 04/19/17 19:12; Start 04/19/17 at 21:00; Stop 04/20/17 at 17:41; Status DC Amitriptyline HCl (Elavil) 25 mg QHS PO Last administered on 04/22/17 19:22; Start 04/20/17 at 21:00; Stop 04/23/17 at 16:46; Status DC Amitriptyline HCl (Elavil) 50 mg QHS PO Last administered on 04/23/17 19:42; Start 04/23/17 at 21:00 Trazodone HCl (Desyrel) 100 mg HS PO Last administered on 04/23/17 19:42; Start 04/23/17 at 21:00 Active Scripts Active Reported Tylenol (Acetaminophen) 325 Mg Tablet 650 Mg PO BID Tylenol (Acetaminophen) 325 Mg Tablet 650 Mg PO PRN Q8HRS PRN Trazodone Hcl 50 Mg Tablet 75 Mg PO BID@1300,1600 Trazodone Hcl 50 Mg Tablet 75 Mg PO HS Namenda Xr (Memantine Hcl) 28 Mg Cap.spr.24 28 Mg PO DAILY Melatonin 3 Mg Tablet 3 Mg PO HS Depakote Sprinkle (Divalproex Sodium) 125 Mg Cap.sprink 375 Mg PO HS Depakote Sprinkle (Divalproex Sodium) 125 Mg Cap.sprink 250 Mg PO DAILY I have reviewed the current psychotropics carefully including drug interactions. Risk benefit ratio favors no change other than as noted in my dictated progress note. Diagnosis: Problems: (1) Aggressive behavior (2) Anxiety disorder (3) Impulse control disorder (4) Dementia, vascular, with depression (5) Dementia, vascular, with delusions (6) Dementia in Alzheimer's disease with depression (7) Dementia in Alzheimer's disease with delusions BOBO VALENZUELA MD Apr 24, 2017 19:47
[2017-04-24] MEDS: traZODone 100 MG TABLET. PO SCH (20:17)
[2017-04-24] MEDS: MELATONIN 3 MG TABLET PO SCH (20:17)
[2017-04-24] MEDS: AMITRIPTYLINE HCL 50 MG TABLET PO SCH (20:18)
[2017-04-25 05:59] VITALS: BP 99/56
--- NOTE | 2017-04-25 08:51 | PN ---
DATE: 04/23/2017 PSYCHIATRIC PROGRESS NOTE This is a late entry 04/23/2017, covers elements not covered in my initial note 04/23/2017. SUBJECTIVE: I met with the patient the evening of 04/23/2017. The patient slept 7-1/2 hours previous evening. He appears confused, more so in the evening. Previous night, he was asking nursing staff what was the he here for in when he was informed about his memory problems. He stated "I don't think I have any problems this with him. His daughter visited, brought a jacket and had his [employer] gifts for him and he handled the family leaving after the visit quite well without getting agitated, which is an improvement. REVIEW OF SYSTEMS: No CV, , pulmonary, eye, ENT system symptoms on review. Reliability poor. MENTAL STATUS EXAM: Oriented to himself. Insight, judgment, recent and remote memory, attention, concentration, fund of knowledge poor, consistent with his diagnoses mentioned in my initial note. IMPRESSION: Major neurocognitive disorder, Alzheimer, vascular with delusion, depression, behavioral disturbance. PLAN: Valproic acid level is 59. Continue current psychotropics. He slept 7-1/2 hours, increased amitriptyline 50 mg. BOBO VALENZUELA MD DR: REGULO/abiodun JOB#: [id number] / [id number]
[2017-04-25] MEDS: DIVALPROEX 125 MG CAP.SPRINK PO SCH ×2 (09:17→19:34)
[2017-04-25] MEDS: MEMANTINE 10 MG TABLET. PO SCH ×2 (09:17→19:34)
[2017-04-25] MEDS: ACETAMINOPHEN 325 MG TABLET PO SCH ×2 (09:17→19:34)
[2017-04-25] MEDS: QUEtiapine 25 MG TABLET. PO SCH ×2 (09:17→13:56)
[2017-04-25] MEDS: SERTRALINE 50 MG TABLET. PO SCH (09:17)
[2017-04-25] MEDS: traZODone 50 MG TABLET. PO SCH ×2 (13:57→16:54)
[2017-04-25 15:59] VITALS: BP 132/69
[2017-04-25] MEDS: traZODone 100 MG TABLET. PO SCH (19:34)
[2017-04-25] MEDS: AMITRIPTYLINE HCL 50 MG TABLET PO SCH (19:34)
[2017-04-25] MEDS: MELATONIN 3 MG TABLET PO SCH (19:34)
--- NOTE | 2017-04-25 19:52 | PDOC ---
Exam Note: Brando Note: Please also refer to the separate dictated note~for this date of service dictated separately.~Patient seen individually. Discussed the patient with Nursing staff reviewed the chart.~Reviewed interim history and current functioning. Reviewed vital signs,~Labs/ Radiology~and current medications noted below. Continue current treatment with the changes noted in the dictated addendum note Assessment: Vital Signs: Vital Signs Date Time Temp Pulse Resp B/P (MAP) Pulse Ox O2 Delivery O2 Flow Rate FiO2 04/25/17 15:59 97.2 60 18 132/69 (90) 93 Room Air I&O Intake and Output 04/25/17 07:00 Intake Total 560 ml Balance 560 ml Intake Oral 560 ml # Voids 1 Current Medications: Meds: Current Medications Multi-Ingredient Ointment (Analgesic [place]) 1 shanon PRN QID PRN TP MUSCLE PAIN; Start 04/17/17 at 00:45 Acetaminophen (Tylenol) 650 mg BID PO Last administered on 04/25/17 19:34; Start 04/17/17 at 01:00 Acetaminophen (Tylenol) 650 mg PRN Q8HRS PRN PO PAIN / TEMP; Start 04/17/17 at 01:00 Divalproex Sodium (Depakote Sprinkles) 250 mg DAILY PO Last administered on 09:17; Start 04/17/17 at 09:00 Divalproex Sodium (Depakote Sprinkles) 375 mg HS PO Last administered on 19:34; Start 04/17/17 at 01:00 Trazodone HCl (Desyrel) 75 mg BID@1300,1600 PO Last administered on 04/17/17 16:44; Start 04/17/17 at 13:00; Stop 04/18/17 at 10:25; Status DC Trazodone HCl (Desyrel) 75 mg HS PO Last administered on 04/22/17 19:23; Start 04/17/17 at 01:00; Stop 04/23/17 at 16:46; Status DC Melatonin 3 mg HS PO Last administered on 04/25/17 19:34; Start 04/17/17 at 01:00 Memantine (Namenda) 10 mg BID PO Last administered on 04/25/17 19:34; Start 04/17/17 at 09:00 Olanzapine (ZyPREXA ZYDIS) 2.5 mg PRN Q2HR PRN PO PSYCHOSIS Last administered on 04/24/17 01:16; Start 04/17/17 at 10:00 Sertraline HCl (Zoloft) 25 mg DAILY PO Last administered on 04/20/17 08:31; Start 04/18/17 at 09:00; Stop 04/20/17 at 23:00; Status DC Sertraline HCl (Zoloft) 50 mg DAILY PO Last administered on 04/25/17 09:17; Start 04/21/17 at 09:00 Mirtazapine (Remeron) 7.5 mg QHS PO Last administered on 04/18/17 19:43; Start 04/17/17 at 21:00; Stop 04/19/17 at 18:36; Status DC Trazodone HCl (Desyrel) 50 mg BID@1300,1600 PO Last administered on 04/25/17 16:54; Start 04/18/17 at 13:00 Sertraline HCl (Zoloft) 12.5 mg BID92 PO ; Start 04/18/17 at 14:00; Status Cancel Quetiapine Fumarate (SEROquel) 12.5 mg BID92 PO Last administered on 13:56; Start 04/18/17 at 14:00 Mirtazapine (Remeron) 15 mg QHS PO Last administered on 04/19/17 19:12; Start 04/19/17 at 21:00; Stop 04/20/17 at 17:41; Status DC Amitriptyline HCl (Elavil) 25 mg QHS PO Last administered on 04/22/17 19:22; Start 04/20/17 at 21:00; Stop 04/23/17 at 16:46; Status DC Amitriptyline HCl (Elavil) 50 mg QHS PO Last administered on 04/25/17 19:34; Start 04/23/17 at 21:00 Trazodone HCl (Desyrel) 100 mg HS PO Last administered on 04/25/17 19:34; Start 04/23/17 at 21:00 Active Scripts Active Reported Tylenol (Acetaminophen) 325 Mg Tablet 650 Mg PO BID Tylenol (Acetaminophen) 325 Mg Tablet 650 Mg PO PRN Q8HRS PRN Trazodone Hcl 50 Mg Tablet 75 Mg PO BID@1300,1600 Trazodone Hcl 50 Mg Tablet 75 Mg PO HS Namenda Xr (Memantine Hcl) 28 Mg Cap.spr.24 28 Mg PO DAILY Melatonin 3 Mg Tablet 3 Mg PO HS Depakote Sprinkle (Divalproex Sodium) 125 Mg Cap.sprink 375 Mg PO HS Depakote Sprinkle (Divalproex Sodium) 125 Mg Cap.sprink 250 Mg PO DAILY I have reviewed the current psychotropics carefully including drug interactions. Risk benefit ratio favors no change other than as noted in my dictated progress note. Diagnosis: Problems: (1) Aggressive behavior (2) Anxiety disorder (3) Impulse control disorder (4) Dementia, vascular, with depression (5) Dementia, vascular, with delusions (6) Dementia in Alzheimer's disease with depression (7) Dementia in Alzheimer's disease with delusions BOBO VALENZUELA MD Apr 25, 2017 19:52
[2017-04-26 05:55] VITALS: BP 129/78
[2017-04-26] MEDS: QUEtiapine 25 MG TABLET. PO SCH ×2 (08:44→12:50)
[2017-04-26] MEDS: DIVALPROEX 125 MG CAP.SPRINK PO SCH ×2 (08:44→19:25)
[2017-04-26] MEDS: ACETAMINOPHEN 325 MG TABLET PO SCH ×2 (08:44→19:23)
[2017-04-26] MEDS: SERTRALINE 50 MG TABLET. PO SCH (08:44)
[2017-04-26] MEDS: MEMANTINE 10 MG TABLET. PO SCH ×2 (08:45→19:22)
[2017-04-26] MEDS: traZODone 50 MG TABLET. PO SCH ×2 (12:50→16:29)
[2017-04-26 15:57] VITALS: BP 126/62
--- NOTE | 2017-04-26 17:44 | PDOC ---
Exam Note: Brando Note: Please also refer to the separate dictated note~for this date of service dictated separately.~Patient seen individually. Discussed the patient with Nursing staff reviewed the chart.~Reviewed interim history and current functioning. Reviewed vital signs,~Labs/ Radiology~and current medications noted below. Continue current treatment with the changes noted in the dictated addendum note Assessment: Vital Signs: Vital Signs Date Time Temp Pulse Resp B/P (MAP) Pulse Ox O2 Delivery O2 Flow Rate FiO2 04/26/17 15:57 97.9 89 18 126/62 (83) 95 04/25/17 15:59 Room Air I&O Intake and Output 04/26/17 06:59 Intake Total 600 ml Balance 600 ml Intake Oral 600 ml # Bowel Movements 1 Current Medications: Meds: Current Medications Multi-Ingredient Ointment (Analgesic [place]) 1 shanon PRN QID PRN TP MUSCLE PAIN; Start 04/17/17 at 00:45 Acetaminophen (Tylenol) 650 mg BID PO Last administered on 04/26/17 08:44; Start 04/17/17 at 01:00 Acetaminophen (Tylenol) 650 mg PRN Q8HRS PRN PO PAIN / TEMP; Start 04/17/17 at 01:00 Divalproex Sodium (Depakote Sprinkles) 250 mg DAILY PO Last administered on 08:44; Start 04/17/17 at 09:00 Divalproex Sodium (Depakote Sprinkles) 375 mg HS PO Last administered on 19:34; Start 04/17/17 at 01:00 Trazodone HCl (Desyrel) 75 mg BID@1300,1600 PO Last administered on 04/17/17 16:44; Start 04/17/17 at 13:00; Stop 04/18/17 at 10:25; Status DC Trazodone HCl (Desyrel) 75 mg HS PO Last administered on 04/22/17 19:23; Start 04/17/17 at 01:00; Stop 04/23/17 at 16:46; Status DC Melatonin 3 mg HS PO Last administered on 04/25/17 19:34; Start 04/17/17 at 01:00 Memantine (Namenda) 10 mg BID PO Last administered on 04/26/17 08:45; Start 04/17/17 at 09:00 Olanzapine (ZyPREXA ZYDIS) 2.5 mg PRN Q2HR PRN PO PSYCHOSIS Last administered on 04/24/17 01:16; Start 04/17/17 at 10:00 Sertraline HCl (Zoloft) 25 mg DAILY PO Last administered on 04/20/17 08:31; Start 04/18/17 at 09:00; Stop 04/20/17 at 23:00; Status DC Sertraline HCl (Zoloft) 50 mg DAILY PO Last administered on 04/26/17 08:44; Start 04/21/17 at 09:00; Stop 04/26/17 at 16:57; Status DC Mirtazapine (Remeron) 7.5 mg QHS PO Last administered on 04/18/17 19:43; Start 04/17/17 at 21:00; Stop 04/19/17 at 18:36; Status DC Trazodone HCl (Desyrel) 50 mg BID@1300,1600 PO Last administered on 04/26/17 16:29; Start 04/18/17 at 13:00 Sertraline HCl (Zoloft) 12.5 mg BID92 PO ; Start 04/18/17 at 14:00; Status Cancel Quetiapine Fumarate (SEROquel) 12.5 mg BID92 PO Last administered on 12:50; Start 04/18/17 at 14:00 Mirtazapine (Remeron) 15 mg QHS PO Last administered on 04/19/17 19:12; Start 04/19/17 at 21:00; Stop 04/20/17 at 17:41; Status DC Amitriptyline HCl (Elavil) 25 mg QHS PO Last administered on 04/22/17 19:22; Start 04/20/17 at 21:00; Stop 04/23/17 at 16:46; Status DC Amitriptyline HCl (Elavil) 50 mg QHS PO Last administered on 04/25/17 19:34; Start 04/23/17 at 21:00 Trazodone HCl (Desyrel) 100 mg HS PO Last administered on 04/25/17 19:34; Start 04/23/17 at 21:00 Sertraline HCl (Zoloft) 75 mg DAILY PO ; Start 04/27/17 at 09:00 Active Scripts Active Reported Tylenol (Acetaminophen) 325 Mg Tablet 650 Mg PO BID Tylenol (Acetaminophen) 325 Mg Tablet 650 Mg PO PRN Q8HRS PRN Trazodone Hcl 50 Mg Tablet 75 Mg PO BID@1300,1600 Trazodone Hcl 50 Mg Tablet 75 Mg PO HS Namenda Xr (Memantine Hcl) 28 Mg Cap.spr.24 28 Mg PO DAILY Melatonin 3 Mg Tablet 3 Mg PO HS Depakote Sprinkle (Divalproex Sodium) 125 Mg Cap.sprink 375 Mg PO HS Depakote Sprinkle (Divalproex Sodium) 125 Mg Cap.sprink 250 Mg PO DAILY I have reviewed the current psychotropics carefully including drug interactions. Risk benefit ratio favors no change other than as noted in my dictated progress note. 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
[2017-04-26] MEDS: MELATONIN 3 MG TABLET PO SCH (19:22)
[2017-04-26] MEDS: traZODone 100 MG TABLET. PO SCH (19:22)
[2017-04-26] MEDS: AMITRIPTYLINE HCL 50 MG TABLET PO SCH (19:23)
--- NOTE | 2017-04-26 19:48 | PDOC ---
Exam Note: Brando Note: Please also refer to the separate dictated note~for this date of service dictated separately.~Patient seen individually. Discussed the patient with Nursing staff reviewed the chart.~Reviewed interim history and current functioning. Reviewed vital signs,~Labs/ Radiology~and current medications noted below. Continue current treatment with the changes noted in the dictated addendum note Assessment: Vital Signs: Vital Signs Date Time Temp Pulse Resp B/P (MAP) Pulse Ox O2 Delivery O2 Flow Rate FiO2 04/26/17 15:57 97.9 89 18 126/62 (83) 95 04/25/17 15:59 Room Air I&O Intake and Output 04/26/17 07:00 Intake Total 600 ml Balance 600 ml Intake Oral 600 ml # Bowel Movements 1 Current Medications: Meds: Current Medications Multi-Ingredient Ointment (Analgesic [place]) 1 shanon PRN QID PRN TP MUSCLE PAIN; Start 04/17/17 at 00:45 Acetaminophen (Tylenol) 650 mg BID PO Last administered on 04/26/17 19:23; Start 04/17/17 at 01:00 Acetaminophen (Tylenol) 650 mg PRN Q8HRS PRN PO PAIN / TEMP; Start 04/17/17 at 01:00 Divalproex Sodium (Depakote Sprinkles) 250 mg DAILY PO Last administered on 08:44; Start 04/17/17 at 09:00 Divalproex Sodium (Depakote Sprinkles) 375 mg HS PO Last administered on 19:25; Start 04/17/17 at 01:00 Trazodone HCl (Desyrel) 75 mg BID@1300,1600 PO Last administered on 04/17/17 16:44; Start 04/17/17 at 13:00; Stop 04/18/17 at 10:25; Status DC Trazodone HCl (Desyrel) 75 mg HS PO Last administered on 04/22/17 19:23; Start 04/17/17 at 01:00; Stop 04/23/17 at 16:46; Status DC Melatonin 3 mg HS PO Last administered on 04/26/17 19:22; Start 04/17/17 at 01:00 Memantine (Namenda) 10 mg BID PO Last administered on 04/26/17 19:22; Start 04/17/17 at 09:00 Olanzapine (ZyPREXA ZYDIS) 2.5 mg PRN Q2HR PRN PO PSYCHOSIS Last administered on 04/24/17 01:16; Start 04/17/17 at 10:00 Sertraline HCl (Zoloft) 25 mg DAILY PO Last administered on 04/20/17 08:31; Start 04/18/17 at 09:00; Stop 04/20/17 at 23:00; Status DC Sertraline HCl (Zoloft) 50 mg DAILY PO Last administered on 04/26/17 08:44; Start 04/21/17 at 09:00; Stop 04/26/17 at 16:57; Status DC Mirtazapine (Remeron) 7.5 mg QHS PO Last administered on 04/18/17 19:43; Start 04/17/17 at 21:00; Stop 04/19/17 at 18:36; Status DC Trazodone HCl (Desyrel) 50 mg BID@1300,1600 PO Last administered on 04/26/17 16:29; Start 04/18/17 at 13:00 Sertraline HCl (Zoloft) 12.5 mg BID92 PO ; Start 04/18/17 at 14:00; Status Cancel Quetiapine Fumarate (SEROquel) 12.5 mg BID92 PO Last administered on 12:50; Start 04/18/17 at 14:00 Mirtazapine (Remeron) 15 mg QHS PO Last administered on 04/19/17 19:12; Start 04/19/17 at 21:00; Stop 04/20/17 at 17:41; Status DC Amitriptyline HCl (Elavil) 25 mg QHS PO Last administered on 04/22/17 19:22; Start 04/20/17 at 21:00; Stop 04/23/17 at 16:46; Status DC Amitriptyline HCl (Elavil) 50 mg QHS PO Last administered on 04/26/17 19:23; Start 04/23/17 at 21:00 Trazodone HCl (Desyrel) 100 mg HS PO Last administered on 04/26/17 19:22; Start 04/23/17 at 21:00 Sertraline HCl (Zoloft) 75 mg DAILY PO ; Start 04/27/17 at 09:00 Active Scripts Active Reported Tylenol (Acetaminophen) 325 Mg Tablet 650 Mg PO BID Tylenol (Acetaminophen) 325 Mg Tablet 650 Mg PO PRN Q8HRS PRN Trazodone Hcl 50 Mg Tablet 75 Mg PO BID@1300,1600 Trazodone Hcl 50 Mg Tablet 75 Mg PO HS Namenda Xr (Memantine Hcl) 28 Mg Cap.spr.24 28 Mg PO DAILY Melatonin 3 Mg Tablet 3 Mg PO HS Depakote Sprinkle (Divalproex Sodium) 125 Mg Cap.sprink 375 Mg PO HS Depakote Sprinkle (Divalproex Sodium) 125 Mg Cap.sprink 250 Mg PO DAILY I have reviewed the current psychotropics carefully including drug interactions. Risk benefit ratio favors no change other than as noted in my dictated progress note. Diagnosis: Problems: (1) Aggressive behavior (2) Anxiety disorder (3) Impulse control disorder (4) Dementia, vascular, with depression (5) Dementia, vascular, with delusions (6) Dementia in Alzheimer's disease with depression (7) Dementia in Alzheimer's disease with delusions BOBO VALENZUELA MD Apr 26, 2017 19:48
--- NOTE | 2017-04-27 03:47 | PN ---
DATE: 04/24/2017 This is a late entry for 04/24/2017, covers elements not covered in my initial note of 04/24/2017. SUBJECTIVE: I met with the patient the evening of 04/24/2017. The patient has been wandering, singing at times, dancing and singing at other times, takes his medications whole, remains confused, but not aggressive, though he gets irritable, labile at times. REVIEW OF SYSTEMS: No CV, , pulmonary, eye, ENT system symptoms on review. Reliability poor. MENTAL STATUS EXAMINATION: Oriented to himself. Insight, judgment, recent and remote memory, attention, concentration, fund of knowledge poor, consistent with his diagnosis mentioned in my initial note. IMPRESSION: Major neurocognitive disorder; Alzheimer, vascular with depression; delusion; behavioral disturbance. Rest unchanged from initial note. PLAN: Continue psychotropics mentioned in my initial note. The patient slept 4-1/4 hours previous evening. We will monitor this since he is on amitriptyline 50 mg at bedtime. MAN Adina VALENZUELA MD DR: REGULO/abiodun JOB#: [id number] / [id number]
--- NOTE | 2017-04-27 03:49 | PN ---
DATE: 04/25/2017 This is a late entry 04/25/2017 covers elements not covered in my initial note of 04/25/2017. SUBJECTIVE: I met with the patient in the evening of 04/25/2017 and staffed at treatment team meeting with the entire team morning of 04/25/2017. Reviewed the patient's history, diagnosis, progress, medications, discharge, aftercare plans. He is doing better with ADLs, but at one point was using the F word for the nursing staff and then using the B word as well, redirected later and oblivious of what he was doing. REVIEW OF SYSTEMS: No CV, , pulmonary, eye, ENT system symptoms on review. Reliability poor. MENTAL STATUS EXAM: Oriented to himself. Insight, judgment, recent and remote memory, attention, concentration, fund of knowledge poor, consistent with his diagnosis mentioned in my initial note. IMPRESSION: Major neurocognitive disorder, Alzheimer, vascular with depression, delusion, behavioral disturbance. Rest unchanged. PLAN: Continue psychotropics mentioned in my initial note including Depakote with a level of 59. Starting 04/26/2017, we will increase Zoloft to 75 mg a day to help with his mood, anxiety, irritability. May need to increase Seroquel as well, but I would like to minimize this given the risk/benefit ratio for now. MAN Adina VALENZUELA MD DR: REGULO/abiodun JOB#: [id number] / [id number]
[2017-04-27 06:01] VITALS: BP 115/54
[2017-04-27] MEDS: ACETAMINOPHEN 325 MG TABLET PO SCH ×2 (08:47→19:29)
[2017-04-27] MEDS: QUEtiapine 25 MG TABLET. PO SCH ×2 (08:48→13:32)
[2017-04-27] MEDS: DIVALPROEX 125 MG CAP.SPRINK PO SCH ×2 (08:48→19:29)
[2017-04-27] MEDS: MEMANTINE 10 MG TABLET. PO SCH ×2 (08:48→19:29)
[2017-04-27] MEDS: SERTRALINE 50 MG TABLET. PO SCH (08:49)
[2017-04-27 09:29] LABS: BASO % 1 % (0-3); EOS # 0.3 x10^3/uL (0.0-0.7); EOS % 6 % (0-3); HEMOGLOBIN 14.8 g/dL (13.0-17.5); LYMPH # 1.2 x10^3/uL (1.0-4.8); LYMPH % 26 % (24-48); MEAN CORPUSCULAR HEMOGLOBIN 32 pg (25-35); MEAN CORPUSCULAR HGB CONC 34 g/dL (31-37); MEAN CORPUSCULAR VOLUME 93 fL (79-100); MONO # 0.7 x10^3/uL (0.0-1.1); MONO % 15 % (0-9); NEUT # 2.4 x10^3uL (1.8-7.7); NEUT % 53 % (31-73); PLATELET COUNT 164 x10^3/uL (140-400); RED BLOOD COUNT 4.61 x10^6/uL (4.30-5.70); RED CELL DISTRIBUTION WIDTH 12.6 % (11.5-14.5); WHITE BLOOD COUNT 4.7 x10^3/uL (4.0-11.0)
[2017-04-27 09:54] LABS: ALBUMIN 3.5 g/dL (3.4-5.0); CALCIUM 8.9 mg/dL (8.5-10.1); CREATININE 1.2 mg/dL (0.7-1.3); POTASSIUM 3.9 mmol/L (3.5-5.1); TOTAL BILIRUBIN 0.4 mg/dL (0.2-1.0); TOTAL PROTEIN 7.1 g/dL (6.4-8.2)
[2017-04-27] MEDS: traZODone 50 MG TABLET. PO SCH ×2 (13:32→16:27)
[2017-04-27 15:49] VITALS: BP 123/76
--- NOTE | 2017-04-27 19:10 | PDOC ---
Exam Note: Brando Note: Please also refer to the separate dictated note~for this date of service dictated separately.~Patient seen individually. Discussed the patient with Nursing staff reviewed the chart.~Reviewed interim history and current functioning. Reviewed vital signs,~Labs/ Radiology~and current medications noted below. Continue current treatment with the changes noted in the dictated addendum note Assessment: Vital Signs: Vital Signs Date Time Temp Pulse Resp B/P (MAP) Pulse Ox O2 Delivery O2 Flow Rate FiO2 04/27/17 15:49 97.1 89 16 123/76 (92) 96 04/25/17 15:59 Room Air I&O Intake and Output 04/27/17 06:59 Intake Total 960 ml Balance 960 ml Intake Oral 960 ml Labs: Laboratory Tests Test 04/27/17 09:16 White Blood Count 4.7 x10^3/uL (4.0-11.0) Red Blood Count 4.61 x10^6/uL (4.30-5.70) Hemoglobin 14.8 g/dL (13.0-17.5) Hematocrit 43.0 % (39.0-53.0) Mean Corpuscular Volume 93 fL (79-100) Mean Corpuscular Hemoglobin 32 pg (25-35) Mean Corpuscular Hemoglobin Concent 34 g/dL (31-37) Red Cell Distribution Width 12.6 % (11.5-14.5) Platelet Count 164 x10^3/uL (140-400) Neutrophils (%) (Auto) 53 % (31-73) Lymphocytes (%) (Auto) 26 % (24-48) Monocytes (%) (Auto) 15 % (0-9) H Eosinophils (%) (Auto) 6 % (0-3) H Basophils (%) (Auto) 1 % (0-3) Neutrophils # (Auto) 2.4 x10^3uL (1.8-7.7) Lymphocytes # (Auto) 1.2 x10^3/uL (1.0-4.8) Monocytes # (Auto) 0.7 x10^3/uL (0.0-1.1) Eosinophils # (Auto) 0.3 x10^3/uL (0.0-0.7) Basophils # (Auto) 0.0 x10^3/uL (0.0-0.2) Sodium Level 142 mmol/L (136-145) Potassium Level 3.9 mmol/L (3.5-5.1) Chloride Level 103 mmol/L (98-107) Carbon Dioxide Level 32 mmol/L (21-32) Anion Gap 7 (6-14) Blood Urea Nitrogen 24 mg/dL (8-26) Creatinine 1.2 mg/dL (0.7-1.3) Estimated GFR (Cockcroft-Gault) 58.0 BUN/Creatinine Ratio 20 (6-20) Glucose Level 150 mg/dL (70-99) H Calcium Level 8.9 mg/dL (8.5-10.1) Total Bilirubin 0.4 mg/dL (0.2-1.0) Aspartate Amino Transferase (AST) 36 U/L (15-37) Alanine Aminotransferase (ALT) 70 U/L (16-63) H Alkaline Phosphatase 67 U/L (46-116) Total Protein 7.1 g/dL (6.4-8.2) Albumin 3.5 g/dL (3.4-5.0) Albumin/Globulin Ratio 1.0 (1.0-1.7) Current Medications: Meds: Current Medications Multi-Ingredient Ointment (Analgesic [place]) 1 shanon PRN QID PRN TP MUSCLE PAIN; Start 04/17/17 at 00:45 Acetaminophen (Tylenol) 650 mg BID PO Last administered on 04/27/17 08:47; Start 04/17/17 at 01:00 Acetaminophen (Tylenol) 650 mg PRN Q8HRS PRN PO PAIN / TEMP; Start 04/17/17 at 01:00 Divalproex Sodium (Depakote Sprinkles) 250 mg DAILY PO Last administered on 08:48; Start 04/17/17 at 09:00 Divalproex Sodium (Depakote Sprinkles) 375 mg HS PO Last administered on 19:25; Start 04/17/17 at 01:00 Trazodone HCl (Desyrel) 75 mg BID@1300,1600 PO Last administered on 04/17/17 16:44; Start 04/17/17 at 13:00; Stop 04/18/17 at 10:25; Status DC Trazodone HCl (Desyrel) 75 mg HS PO Last administered on 04/22/17 19:23; Start 04/17/17 at 01:00; Stop 04/23/17 at 16:46; Status DC Melatonin 3 mg HS PO Last administered on 04/26/17 19:22; Start 04/17/17 at 01:00 Memantine (Namenda) 10 mg BID PO Last administered on 04/27/17 08:48; Start 04/17/17 at 09:00 Olanzapine (ZyPREXA ZYDIS) 2.5 mg PRN Q2HR PRN PO PSYCHOSIS Last administered on 04/24/17 01:16; Start 04/17/17 at 10:00 Sertraline HCl (Zoloft) 25 mg DAILY PO Last administered on 04/20/17 08:31; Start 04/18/17 at 09:00; Stop 04/20/17 at 23:00; Status DC Sertraline HCl (Zoloft) 50 mg DAILY PO Last administered on 04/26/17 08:44; Start 04/21/17 at 09:00; Stop 04/26/17 at 16:57; Status DC Mirtazapine (Remeron) 7.5 mg QHS PO Last administered on 04/18/17 19:43; Start 04/17/17 at 21:00; Stop 04/19/17 at 18:36; Status DC Trazodone HCl (Desyrel) 50 mg BID@1300,1600 PO Last administered on 04/27/17 16:27; Start 04/18/17 at 13:00 Sertraline HCl (Zoloft) 12.5 mg BID92 PO ; Start 04/18/17 at 14:00; Status Cancel Quetiapine Fumarate (SEROquel) 12.5 mg BID92 PO Last administered on 13:32; Start 04/18/17 at 14:00 Mirtazapine (Remeron) 15 mg QHS PO Last administered on 04/19/17 19:12; Start 04/19/17 at 21:00; Stop 04/20/17 at 17:41; Status DC Amitriptyline HCl (Elavil) 25 mg QHS PO Last administered on 04/22/17 19:22; Start 04/20/17 at 21:00; Stop 04/23/17 at 16:46; Status DC Amitriptyline HCl (Elavil) 50 mg QHS PO Last administered on 04/26/17 19:23; Start 04/23/17 at 21:00 Trazodone HCl (Desyrel) 100 mg HS PO Last administered on 04/26/17 19:22; Start 04/23/17 at 21:00 Sertraline HCl (Zoloft) 75 mg DAILY PO Last administered on 04/27/17 08:49; Start 04/27/17 at 09:00 Active Scripts Active Reported Tylenol (Acetaminophen) 325 Mg Tablet 650 Mg PO BID Tylenol (Acetaminophen) 325 Mg Tablet 650 Mg PO PRN Q8HRS PRN Trazodone Hcl 50 Mg Tablet 75 Mg PO BID@1300,1600 Trazodone Hcl 50 Mg Tablet 75 Mg PO HS Namenda Xr (Memantine Hcl) 28 Mg Cap.spr.24 28 Mg PO DAILY Melatonin 3 Mg Tablet 3 Mg PO HS Depakote Sprinkle (Divalproex Sodium) 125 Mg Cap.sprink 375 Mg PO HS Depakote Sprinkle (Divalproex Sodium) 125 Mg Cap.sprink 250 Mg PO DAILY I have reviewed the current psychotropics carefully including drug interactions. Risk benefit ratio favors no change other than as noted in my dictated progress note. 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
[2017-04-27] MEDS: AMITRIPTYLINE HCL 50 MG TABLET PO SCH (19:29)
[2017-04-27] MEDS: traZODone 100 MG TABLET. PO SCH (19:29)
[2017-04-27] MEDS: MELATONIN 3 MG TABLET PO SCH (19:29)
[2017-04-28] MEDS: ACETAMINOPHEN 325 MG TABLET PO SCH ×2 (10:17→20:12)
[2017-04-28] MEDS: DIVALPROEX 125 MG CAP.SPRINK PO SCH ×2 (10:17→20:11)
[2017-04-28] MEDS: MEMANTINE 10 MG TABLET. PO SCH ×2 (10:17→20:12)
[2017-04-28] MEDS: QUEtiapine 25 MG TABLET. PO SCH ×2 (10:17→13:56)
[2017-04-28] MEDS: SERTRALINE 50 MG TABLET. PO SCH (10:17)
[2017-04-28 10:21] VITALS: BP 107/76
[2017-04-28] MEDS: traZODone 50 MG TABLET. PO SCH ×2 (13:55→16:16)
[2017-04-28 15:53] VITALS: BP 111/78
[2017-04-28] MEDS: AMITRIPTYLINE HCL 50 MG TABLET PO SCH (20:12)
[2017-04-28] MEDS: MELATONIN 3 MG TABLET PO SCH (20:12)
[2017-04-28] MEDS: traZODone 100 MG TABLET. PO SCH (20:12)
--- NOTE | 2017-04-28 20:16 | PDOC ---
Exam Note: Brando Note: Please also refer to the separate dictated note~for this date of service dictated separately.~Patient seen individually. Discussed the patient with Nursing staff reviewed the chart.~Reviewed interim history and current functioning. Reviewed vital signs,~Labs/ Radiology~and current medications noted below. Continue current treatment with the changes noted in the dictated addendum note Assessment: Vital Signs: Vital Signs Date Time Temp Pulse Resp B/P (MAP) Pulse Ox O2 Delivery O2 Flow Rate FiO2 04/28/17 15:53 97.9 74 20 111/78 (89) 95 04/25/17 15:59 Room Air I&O Intake and Output 04/28/17 07:00 Intake Total 845 ml Balance 845 ml Intake Oral 845 ml Current Medications: Meds: Current Medications Multi-Ingredient Ointment (Analgesic [place]) 1 shanon PRN QID PRN TP MUSCLE PAIN; Start 04/17/17 at 00:45 Acetaminophen (Tylenol) 650 mg BID PO Last administered on 04/28/17 20:12; Start 04/17/17 at 01:00 Acetaminophen (Tylenol) 650 mg PRN Q8HRS PRN PO PAIN / TEMP; Start 04/17/17 at 01:00 Divalproex Sodium (Depakote Sprinkles) 250 mg DAILY PO Last administered on 10:17; Start 04/17/17 at 09:00 Divalproex Sodium (Depakote Sprinkles) 375 mg HS PO Last administered on 20:11; Start 04/17/17 at 01:00 Trazodone HCl (Desyrel) 75 mg BID@1300,1600 PO Last administered on 04/17/17 16:44; Start 04/17/17 at 13:00; Stop 04/18/17 at 10:25; Status DC Trazodone HCl (Desyrel) 75 mg HS PO Last administered on 04/22/17 19:23; Start 04/17/17 at 01:00; Stop 04/23/17 at 16:46; Status DC Melatonin 3 mg HS PO Last administered on 04/28/17 20:12; Start 04/17/17 at 01:00 Memantine (Namenda) 10 mg BID PO Last administered on 04/28/17 20:12; Start 04/17/17 at 09:00 Olanzapine (ZyPREXA ZYDIS) 2.5 mg PRN Q2HR PRN PO PSYCHOSIS Last administered on 04/27/17 21:29; Start 04/17/17 at 10:00 Sertraline HCl (Zoloft) 25 mg DAILY PO Last administered on 04/20/17 08:31; Start 04/18/17 at 09:00; Stop 04/20/17 at 23:00; Status DC Sertraline HCl (Zoloft) 50 mg DAILY PO Last administered on 04/26/17 08:44; Start 04/21/17 at 09:00; Stop 04/26/17 at 16:57; Status DC Mirtazapine (Remeron) 7.5 mg QHS PO Last administered on 04/18/17 19:43; Start 04/17/17 at 21:00; Stop 04/19/17 at 18:36; Status DC Trazodone HCl (Desyrel) 50 mg BID@1300,1600 PO Last administered on 04/28/17 16:16; Start 04/18/17 at 13:00 Sertraline HCl (Zoloft) 12.5 mg BID92 PO ; Start 04/18/17 at 14:00; Status Cancel Quetiapine Fumarate (SEROquel) 12.5 mg BID92 PO Last administered on 13:56; Start 04/18/17 at 14:00 Mirtazapine (Remeron) 15 mg QHS PO Last administered on 04/19/17 19:12; Start 04/19/17 at 21:00; Stop 04/20/17 at 17:41; Status DC Amitriptyline HCl (Elavil) 25 mg QHS PO Last administered on 04/22/17 19:22; Start 04/20/17 at 21:00; Stop 04/23/17 at 16:46; Status DC Amitriptyline HCl (Elavil) 50 mg QHS PO Last administered on 04/28/17 20:12; Start 04/23/17 at 21:00 Trazodone HCl (Desyrel) 100 mg HS PO Last administered on 04/28/17 20:12; Start 04/23/17 at 21:00 Sertraline HCl (Zoloft) 75 mg DAILY PO Last administered on 04/28/17t 10:17; Start 04/27/17 at 09:00 Active Scripts Active Reported Tylenol (Acetaminophen) 325 Mg Tablet 650 Mg PO BID Tylenol (Acetaminophen) 325 Mg Tablet 650 Mg PO PRN Q8HRS PRN Trazodone Hcl 50 Mg Tablet 75 Mg PO BID@1300,1600 Trazodone Hcl 50 Mg Tablet 75 Mg PO HS Namenda Xr (Memantine Hcl) 28 Mg Cap.spr.24 28 Mg PO DAILY Melatonin 3 Mg Tablet 3 Mg PO HS Depakote Sprinkle (Divalproex Sodium) 125 Mg Cap.sprink 375 Mg PO HS Depakote Sprinkle (Divalproex Sodium) 125 Mg Cap.sprink 250 Mg PO DAILY I have reviewed the current psychotropics carefully including drug interactions. Risk benefit ratio favors no change other than as noted in my dictated progress note. 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
[2017-04-29 06:02] VITALS: BP 133/73
--- NOTE | 2017-04-29 08:31 | PN ---
DATE: 04/27/2017 This is a late entry for 04/27/2017 and covers the elements not covered in my initial note of 04/27/2017. SUBJECTIVE: I met with the patient evening of 04/27/2017. The patient slept 2-1/2 hours previous evening, was anxious, restless and this is despite the amitriptyline 50 mg at night. REVIEW OF SYSTEMS: No CV, , pulmonary, eye, ENT system symptoms on review. Reliability poor. MENTAL STATUS EXAM: Oriented to himself. Insight, judgment, recent and remote memory, attention, concentration, fund of knowledge poor, consistent with his diagnosis mentioned in my initial note. IMPRESSION: Major neurocognitive disorder, Alzheimer, vascular with depression, delusion, behavioral disturbance. Rest unchanged. PLAN: Continue psychotropics mentioned in my initial note. The patient's insomnia has been quite resistant to treatment, but I do not want to increase the psychotropics very much more given his age, but we will have to reconsider in the next day or two depending on how he sleeps. MAN Adina VALENZUELA MD DR: REGULO/abiodun JOB#: [id number] / [id number]
[2017-04-29] MEDS: ACETAMINOPHEN 325 MG TABLET PO SCH ×2 (08:34→20:46)
[2017-04-29] MEDS: MEMANTINE 10 MG TABLET. PO SCH ×2 (08:34→20:46)
[2017-04-29] MEDS: DIVALPROEX 125 MG CAP.SPRINK PO SCH ×2 (08:34→20:47)
[2017-04-29] MEDS: QUEtiapine 25 MG TABLET. PO SCH ×2 (08:34→14:00)
[2017-04-29] MEDS: SERTRALINE 50 MG TABLET. PO SCH (08:35)
[2017-04-29] MEDS: traZODone 50 MG TABLET. PO SCH ×2 (13:00→16:58)
[2017-04-29 15:59] VITALS: BP 171/72
--- NOTE | 2017-04-29 19:55 | PDOC ---
Exam Note: Brando Note: Please also refer to the separate dictated note~for this date of service dictated separately.~Patient seen individually. Discussed the patient with Nursing staff reviewed the chart.~Reviewed interim history and current functioning. Reviewed vital signs,~Labs/ Radiology~and current medications noted below. Continue current treatment with the changes noted in the dictated addendum note Assessment: Vital Signs: Vital Signs Date Time Temp Pulse Resp B/P (MAP) Pulse Ox O2 Delivery O2 Flow Rate FiO2 04/29/17 15:59 97.1 80 20 171/72 (105) 96 04/29/17 06:02 Room Air I&O Intake and Output 04/29/17 07:00 Intake Total 400 ml Balance 400 ml Intake Oral 400 ml Current Medications: Meds: Current Medications Multi-Ingredient Ointment (Analgesic [place]) 1 shanon PRN QID PRN TP MUSCLE PAIN; Start 04/17/17 at 00:45 Acetaminophen (Tylenol) 650 mg BID PO Last administered on 04/29/17 08:34; Start 04/17/17 at 01:00 Acetaminophen (Tylenol) 650 mg PRN Q8HRS PRN PO PAIN / TEMP; Start 04/17/17 at 01:00 Divalproex Sodium (Depakote Sprinkles) 250 mg DAILY PO Last administered on 04/29 08:34; Start 04/17/17 at 09:00 Divalproex Sodium (Depakote Sprinkles) 375 mg HS PO Last administered on 20:11; Start 04/17/17 at 01:00 Trazodone HCl (Desyrel) 75 mg BID@1300,1600 PO Last administered on 04/17/17 16:44; Start 04/17/17 at 13:00; Stop 04/18/17 at 10:25; Status DC Trazodone HCl (Desyrel) 75 mg HS PO Last administered on 04/22/17 19:23; Start 04/17/17 at 01:00; Stop 04/23/17 at 16:46; Status DC Melatonin 3 mg HS PO Last administered on 04/28/17 20:12; Start 04/17/17 at 01:00 Memantine (Namenda) 10 mg BID PO Last administered on 04/29/17 08:34; Start at 09:00 Olanzapine (ZyPREXA ZYDIS) 2.5 mg PRN Q2HR PRN PO PSYCHOSIS Last administered on 04/27/17 21:29; Start 04/17/17 at 10:00 Sertraline HCl (Zoloft) 25 mg DAILY PO Last administered on 04/20/17 08:31; Start 04/18/17 at 09:00; Stop 04/20/17 at 23:00; Status DC Sertraline HCl (Zoloft) 50 mg DAILY PO Last administered on 04/26/17 08:44; Start 04/21/17 at 09:00; Stop 04/26/17 at 16:57; Status DC Mirtazapine (Remeron) 7.5 mg QHS PO Last administered on 04/18/17 19:43; Start 04/17/17 at 21:00; Stop 04/19/17 at 18:36; Status DC Trazodone HCl (Desyrel) 50 mg BID@1300,1600 PO Last administered on 04/29/17at 16 :58; Start 04/18/17 at 13:00; Stop 04/29/17 at 18:58; Status DC Sertraline HCl (Zoloft) 12.5 mg BID92 PO ; Start 04/18/17 at 14:00; Status Cancel Quetiapine Fumarate (SEROquel) 12.5 mg BID92 PO Last administered on 04/29/17 08:34; Start 04/18/17 at 14:00 Mirtazapine (Remeron) 15 mg QHS PO Last administered on 04/19/17 19:12; Start 04/19/17 at 21:00; Stop 04/20/17 at 17:41; Status DC Amitriptyline HCl (Elavil) 25 mg QHS PO Last administered on 04/22/17 19:22; Start 04/20/17 at 21:00; Stop 04/23/17 at 16:46; Status DC Amitriptyline HCl (Elavil) 50 mg QHS PO Last administered on 04/28/17 20:12; Start 04/23/17 at 21:00 Trazodone HCl (Desyrel) 100 mg HS PO Last administered on 04/28/17 20:12; Start 04/23/17 at 21:00 Sertraline HCl (Zoloft) 75 mg DAILY PO Last administered on 04/29/17at 08:35; Start 04/27/17 at 09:00 Trazodone HCl (Desyrel) 100 mg PRN QHS PRN PO INSOMNIA; Start 04/29/17 at 19:00 Active Scripts Active Reported Tylenol (Acetaminophen) 325 Mg Tablet 650 Mg PO BID Tylenol (Acetaminophen) 325 Mg Tablet 650 Mg PO PRN Q8HRS PRN Trazodone Hcl 50 Mg Tablet 75 Mg PO BID@1300,1600 Trazodone Hcl 50 Mg Tablet 75 Mg PO HS Namenda Xr (Memantine Hcl) 28 Mg Cap.spr.24 28 Mg PO DAILY Melatonin 3 Mg Tablet 3 Mg PO HS Depakote Sprinkle (Divalproex Sodium) 125 Mg Cap.sprink 375 Mg PO HS Depakote Sprinkle (Divalproex Sodium) 125 Mg Cap.sprink 250 Mg PO DAILY I have reviewed the current psychotropics carefully including drug interactions. Risk benefit ratio favors no change other than as noted in my dictated progress note. Diagnosis: Problems: (1) Aggressive behavior (2) Anxiety disorder (3) Impulse control disorder (4) Dementia, vascular, with depression (5) Dementia, vascular, with delusions (6) Dementia in Alzheimer's disease with depression (7) Dementia in Alzheimer's disease with delusions BOBO VALENZUELA MD Apr 29, 2017 19:55
[2017-04-29] MEDS: AMITRIPTYLINE HCL 50 MG TABLET PO SCH (20:46)
[2017-04-29] MEDS: traZODone 100 MG TABLET. PO SCH (20:47)
[2017-04-29] MEDS: MELATONIN 3 MG TABLET PO SCH (20:47)
[2017-04-29] MEDS: traZODone 100 MG TABLET. PO PRN (22:52)
[2017-04-30 05:50] VITALS: BP 136/77
--- NOTE | 2017-04-30 10:22 | PN ---
DATE: 04/26/2017 This late entry 04/26/2017 covers elements not covered in my initial note 04/26/2017. I met with the patient evening of 04/26/2017. The patient slept 6-1/4 hours previous evening. UA shows mixed augustus. He remains confused. He is singing "do do do do Song" per nursing report. He has not been aggressive. REVIEW OF SYSTEMS: No CV, , pulmonary, eye, ENT system symptoms on review. Reliability poor. MENTAL STATUS EXAM: Oriented to himself. Insight, judgment, recent and remote memory, attention, concentration, fund of knowledge poor, consistent with his diagnosis mentioned in my initial note. IMPRESSION: Major neurocognitive disorder, Alzheimer, vascular with depression, delusion, behavioral disturbance. PLAN: Continue current psychotropics mentioned in my initial note. Adjust as clinically indicated. MAN Adina VALENZUELA MD DR: REGULO/abiodun JOB#: [id number] / [id number]
[2017-04-30] MEDS: MEMANTINE 10 MG TABLET. PO SCH ×2 (10:38→20:42)
[2017-04-30] MEDS: SERTRALINE 50 MG TABLET. PO SCH (10:38)
[2017-04-30] MEDS: QUEtiapine 25 MG TABLET. PO SCH ×2 (10:38→13:57)
[2017-04-30] MEDS: ACETAMINOPHEN 325 MG TABLET PO SCH ×2 (10:39→20:43)
[2017-04-30] MEDS: DIVALPROEX 125 MG CAP.SPRINK PO SCH ×2 (10:39→20:42)
[2017-04-30 15:48] VITALS: BP 108/73
--- NOTE | 2017-04-30 20:06 | PDOC ---
Exam Note: Brando Note: Please also refer to the separate dictated note~for this date of service dictated separately.~Patient seen individually. Discussed the patient with Nursing staff reviewed the chart.~Reviewed interim history and current functioning. Reviewed vital signs,~Labs/ Radiology~and current medications noted below. Continue current treatment with the changes noted in the dictated addendum note Assessment: Vital Signs: Vital Signs Date Time Temp Pulse Resp B/P (MAP) Pulse Ox O2 Delivery O2 Flow Rate FiO2 04/30/17 15:48 97.8 109 20 108/73 (85) 95 04/29/17 06:02 Room Air I&O Intake and Output 04/30/17 07:00 Intake Total 660 ml Balance 660 ml Intake Oral 660 ml Current Medications: Meds: Current Medications Multi-Ingredient Ointment (Analgesic [place]) 1 shanon PRN QID PRN TP MUSCLE PAIN; Start 04/17/17 at 00:45 Acetaminophen (Tylenol) 650 mg BID PO Last administered on 04/30/17 10:39; Start 04/17/17 at 01:00 Acetaminophen (Tylenol) 650 mg PRN Q8HRS PRN PO PAIN / TEMP; Start 04/17/17 at 01:00 Divalproex Sodium (Depakote Sprinkles) 250 mg DAILY PO Last administered on 04/30 10:39; Start 04/17/17 at 09:00 Divalproex Sodium (Depakote Sprinkles) 375 mg HS PO Last administered on 20:47; Start 04/17/17 at 01:00 Trazodone HCl (Desyrel) 75 mg BID@1300,1600 PO Last administered on 04/17/17 16:44; Start 04/17/17 at 13:00; Stop 04/18/17 at 10:25; Status DC Trazodone HCl (Desyrel) 75 mg HS PO Last administered on 04/22/17 19:23; Start 04/17/17 at 01:00; Stop 04/23/17 at 16:46; Status DC Melatonin 3 mg HS PO Last administered on 04/29/17 20:47; Start 04/17/17 at 01 :00 Memantine (Namenda) 10 mg BID PO Last administered on 04/30/17 10:38; Start at 09:00 Olanzapine (ZyPREXA ZYDIS) 2.5 mg PRN Q2HR PRN PO PSYCHOSIS Last administered on 04/27/17 21:29; Start 04/17/17 at 10:00 Sertraline HCl (Zoloft) 25 mg DAILY PO Last administered on 04/20/17 08:31; Start 04/18/17 at 09:00; Stop 04/20/17 at 23:00; Status DC Sertraline HCl (Zoloft) 50 mg DAILY PO Last administered on 04/26/17 08:44; Start 04/21/17 at 09:00; Stop 04/26/17 at 16:57; Status DC Mirtazapine (Remeron) 7.5 mg QHS PO Last administered on 04/18/17 19:43; Start 04/17/17 at 21:00; Stop 04/19/17 at 18:36; Status DC Trazodone HCl (Desyrel) 50 mg BID@1300,1600 PO Last administered on 04/29/17 16 :58; Start 04/18/17 at 13:00; Stop 04/29/17 at 18:58; Status DC Sertraline HCl (Zoloft) 12.5 mg BID92 PO ; Start 04/18/17 at 14:00; Status Cancel Quetiapine Fumarate (SEROquel) 12.5 mg BID92 PO Last administered on 04/30/17 13:57; Start 04/18/17 at 14:00 Mirtazapine (Remeron) 15 mg QHS PO Last administered on 04/19/17 19:12; Start 04/19/17 at 21:00; Stop 04/20/17 at 17:41; Status DC Amitriptyline HCl (Elavil) 25 mg QHS PO Last administered on 04/22/17 19:22; Start 04/20/17 at 21:00; Stop 04/23/17 at 16:46; Status DC Amitriptyline HCl (Elavil) 50 mg QHS PO Last administered on 04/29/17 20:46; Start 04/23/17 at 21:00 Trazodone HCl (Desyrel) 100 mg HS PO Last administered on 04/29/17 20:47; Start 04/23/17 at 21:00 Sertraline HCl (Zoloft) 75 mg DAILY PO Last administered on 04/30/17at 10:38; Start 04/27/17 at 09:00 Trazodone HCl (Desyrel) 100 mg PRN QHS PRN PO INSOMNIA Last administered on 04/29at 22:52; Start 04/29/17 at 19:00 Active Scripts Active Reported Tylenol (Acetaminophen) 325 Mg Tablet 650 Mg PO BID Tylenol (Acetaminophen) 325 Mg Tablet 650 Mg PO PRN Q8HRS PRN Trazodone Hcl 50 Mg Tablet 75 Mg PO BID@1300,1600 Trazodone Hcl 50 Mg Tablet 75 Mg PO HS Namenda Xr (Memantine Hcl) 28 Mg Cap.spr.24 28 Mg PO DAILY Melatonin 3 Mg Tablet 3 Mg PO HS Depakote Sprinkle (Divalproex Sodium) 125 Mg Cap.sprink 375 Mg PO HS Depakote Sprinkle (Divalproex Sodium) 125 Mg Cap.sprink 250 Mg PO DAILY I have reviewed the current psychotropics carefully including drug interactions. Risk benefit ratio favors no change other than as noted in my dictated progress note. Diagnosis: Problems: (1) Aggressive behavior (2) Anxiety disorder (3) Impulse control disorder (4) Dementia, vascular, with depression (5) Dementia, vascular, with delusions (6) Dementia in Alzheimer's disease with depression (7) Dementia in Alzheimer's disease with delusions BOBO VALENZUELA MD Apr 30, 2017 20:06
[2017-04-30] MEDS: MELATONIN 3 MG TABLET PO SCH (20:41)
[2017-04-30] MEDS: AMITRIPTYLINE HCL 50 MG TABLET PO SCH (20:41)
[2017-04-30] MEDS: traZODone 100 MG TABLET. PO SCH (20:42)
[2017-05-01] MEDS: traZODone 100 MG TABLET. PO PRN ×2 (00:53→20:39)
[2017-05-01 05:35] VITALS: BP_SYST 110; BP_SYST 131; BP_DIAS 66; BP_DIAS 79
--- NOTE | 2017-05-01 08:03 | PN ---
DATE: 04/28/2017 This is a late entry for 04/28/2017 and covers elements not covered in my initial note of 04/28/2017. I met with the patient the evening of 04/28/2016. The patient remains confused, pleasant, wandering seen to sing to himself at times. REVIEW OF SYSTEMS: No CV, , pulmonary, eye, ENT system symptoms on review. Reliability poor. MENTAL STATUS EXAM: Oriented to himself. Insight, judgment, recent and remote memory, attention, concentration, fund of knowledge poor, consistent with his diagnosis as mentioned in my initial note. IMPRESSION: Major neurocognitive disorder, Alzheimer, vascular with depression, delusion, behavioral disturbance. PLAN: Continue current psychotropics unchanged. Valproic acid level is 59. MAN Adina VALENZUELA MD DR: REGULO/abiodun JOB#: [id number] / [id number]
[2017-05-01] MEDS: QUEtiapine 25 MG TABLET. PO SCH ×2 (08:07→14:03)
[2017-05-01] MEDS: ACETAMINOPHEN 325 MG TABLET PO SCH ×2 (08:07→20:36)
[2017-05-01] MEDS: DIVALPROEX 125 MG CAP.SPRINK PO SCH ×2 (08:07→20:37)
[2017-05-01] MEDS: MEMANTINE 10 MG TABLET. PO SCH ×2 (08:08→20:37)
[2017-05-01] MEDS: SERTRALINE 50 MG TABLET. PO SCH (08:08)
--- NOTE | 2017-05-01 13:20 | PN ---
DATE: 04/29/2017 This late entry 04/29/2017 covers elements not covered in my initial note 04/29/2017. The patient slept 2 hours previous evening. He then slept during the day after breakfast till about 5 p.m. He remains confused, ambulates and thinks to himself. REVIEW OF SYSTEMS: No CV, , pulmonary, eye, ENT system symptoms on review. Reliability poor. MENTAL STATUS EXAM: Oriented to himself. Insight, judgment, recent and remote memory, attention, concentration, fund of knowledge poor and consistent with his diagnosis. IMPRESSION: Major neurocognitive disorder, Alzheimer's, vascular with depression, delusion, behavioral disturbance, rest unchanged. PLAN: We will stop the daytime trazodone to help reduce the daytime sedation when makes up for his sleep at night and we will give an extra 100 mg at bedtime p.r.n. trazodone for insomnia. Rest unchanged including amitriptyline 50 mg at bedtime and others mentioned in my initial note. MAN Adina VALENZUELA MD DR: REGULO/abiodun JOB#: [id number] / [id number]
[2017-05-01 16:16] VITALS: BP 117/71
--- NOTE | 2017-05-01 20:01 | PDOC ---
Exam Note: Brando Note: Please also refer to the separate dictated note~for this date of service dictated separately.~Patient seen individually. Discussed the patient with Nursing staff reviewed the chart.~Reviewed interim history and current functioning. Reviewed vital signs,~Labs/ Radiology~and current medications noted below. Continue current treatment with the changes noted in the dictated addendum note Assessment: Vital Signs: Vital Signs Date Time Temp Pulse Resp B/P (MAP) Pulse Ox O2 Delivery O2 Flow Rate FiO2 05/01/17 16:16 98.0 86 18 117/71 (86) 95 04/29/17 06:02 Room Air I&O Intake and Output 05/01/17 07:00 Intake Total 580 ml Balance 580 ml Intake Oral 580 ml Current Medications: Meds: Current Medications Multi-Ingredient Ointment (Analgesic [place]) 1 shanon PRN QID PRN TP MUSCLE PAIN; Start 04/17/17 at 00:45 Acetaminophen (Tylenol) 650 mg BID PO Last administered on 05/01/17 08:07; Start 04/17/17 at 01:00 Acetaminophen (Tylenol) 650 mg PRN Q8HRS PRN PO PAIN / TEMP; Start 04/17/17 at 01:00 Divalproex Sodium (Depakote Sprinkles) 250 mg DAILY PO Last administered on 05/01 08:07; Start 04/17/17 at 09:00 Divalproex Sodium (Depakote Sprinkles) 375 mg HS PO Last administered on 20:42; Start 04/17/17 at 01:00 Trazodone HCl (Desyrel) 75 mg BID@1300,1600 PO Last administered on 04/17/17 16:44; Start 04/17/17 at 13:00; Stop 04/18/17 at 10:25; Status DC Trazodone HCl (Desyrel) 75 mg HS PO Last administered on 04/22/17 19:23; Start 04/17/17 at 01:00; Stop 04/23/17 at 16:46; Status DC Melatonin 3 mg HS PO Last administered on 04/30/17 20:41; Start 04/17/17 at 01 :00 Memantine (Namenda) 10 mg BID PO Last administered on 05/01/17 08:08; Start at 09:00 Olanzapine (ZyPREXA ZYDIS) 2.5 mg PRN Q2HR PRN PO PSYCHOSIS Last administered on 04/27/17 21:29; Start 04/17/17 at 10:00 Sertraline HCl (Zoloft) 25 mg DAILY PO Last administered on 04/20/17 08:31; Start 04/18/17 at 09:00; Stop 04/20/17 at 23:00; Status DC Sertraline HCl (Zoloft) 50 mg DAILY PO Last administered on 04/26/17 08:44; Start 04/21/17 at 09:00; Stop 04/26/17 at 16:57; Status DC Mirtazapine (Remeron) 7.5 mg QHS PO Last administered on 04/18/17 19:43; Start 04/17/17 at 21:00; Stop 04/19/17 at 18:36; Status DC Trazodone HCl (Desyrel) 50 mg BID@1300,1600 PO Last administered on 04/29/17 16 :58; Start 04/18/17 at 13:00; Stop 04/29/17 at 18:58; Status DC Sertraline HCl (Zoloft) 12.5 mg BID92 PO ; Start 04/18/17 at 14:00; Status Cancel Quetiapine Fumarate (SEROquel) 12.5 mg BID92 PO Last administered on 05/01/17 14:03; Start 04/18/17 at 14:00 Mirtazapine (Remeron) 15 mg QHS PO Last administered on 04/19/17 19:12; Start 04/19/17 at 21:00; Stop 04/20/17 at 17:41; Status DC Amitriptyline HCl (Elavil) 25 mg QHS PO Last administered on 04/22/17 19:22; Start 04/20/17 at 21:00; Stop 04/23/17 at 16:46; Status DC Amitriptyline HCl (Elavil) 50 mg QHS PO Last administered on 04/30/17 20:41; Start 04/23/17 at 21:00 Trazodone HCl (Desyrel) 100 mg HS PO Last administered on 04/30/17 20:42; Start 04/23/17 at 21:00 Sertraline HCl (Zoloft) 75 mg DAILY PO Last administered on 05/01/17at 08:08; Start 04/27/17 at 09:00 Trazodone HCl (Desyrel) 100 mg PRN QHS PRN PO INSOMNIA Last administered on 05/01at 00:53; Start 04/29/17 at 19:00 Active Scripts Active Reported Tylenol (Acetaminophen) 325 Mg Tablet 650 Mg PO BID Tylenol (Acetaminophen) 325 Mg Tablet 650 Mg PO PRN Q8HRS PRN Trazodone Hcl 50 Mg Tablet 75 Mg PO BID@1300,1600 Trazodone Hcl 50 Mg Tablet 75 Mg PO HS Namenda Xr (Memantine Hcl) 28 Mg Cap.spr.24 28 Mg PO DAILY Melatonin 3 Mg Tablet 3 Mg PO HS Depakote Sprinkle (Divalproex Sodium) 125 Mg Cap.sprink 375 Mg PO HS Depakote Sprinkle (Divalproex Sodium) 125 Mg Cap.sprink 250 Mg PO DAILY I have reviewed the current psychotropics carefully including drug interactions. Risk benefit ratio favors no change other than as noted in my dictated progress note. Diagnosis: Problems: (1) Aggressive behavior (2) Anxiety disorder (3) Impulse control disorder (4) Dementia, vascular, with depression (5) Dementia, vascular, with delusions (6) Dementia in Alzheimer's disease with depression (7) Dementia in Alzheimer's disease with delusions BOBO VALENZUELA MD May 01, 2017 20:01
[2017-05-01] MEDS: MELATONIN 3 MG TABLET PO SCH (20:37)
[2017-05-01] MEDS: traZODone 100 MG TABLET. PO SCH (20:37)
[2017-05-01] MEDS: AMITRIPTYLINE HCL 50 MG TABLET PO SCH (20:37)
--- NOTE | 2017-05-02 01:25 | PN ---
DATE: 04/30/2017 PSYCHIATRIC PROGRESS NOTE This late entry 04/30/2017 covers elements not covered in my initial note 04/30/2017. SUBJECTIVE: The patient slept 4-3/4 hours previous evening, slept until 11:00 a.m. for a total of 9-3/4 hours, resistive to shower the previous evening. Remains confused, wandering around the hallway during the day on 04/30/2017 and whistling at times. REVIEW OF SYSTEMS: No CV, , pulmonary, eye, ENT system symptoms on review. Reliability poor. MENTAL STATUS EXAM: Oriented to himself. Insight, judgment, recent and remote memory, attention, concentration, fund of knowledge poor, consistent with his diagnosis mentioned in my initial note. IMPRESSION: Major neurocognitive disorder, Alzheimer, vascular with depression, delusion, behavioral disturbance. Rest unchanged from initial note. PLAN: Continue psychotropics mentioned in my initial note for now. BOBO VALENZUELA MD DR: REGULO/abiodun JOB#: [id number] / [id number]
[2017-05-02 06:00] VITALS: BP 131/82
[2017-05-02] MEDS: QUEtiapine 25 MG TABLET. PO SCH ×2 (09:17→13:53)
[2017-05-02] MEDS: MEMANTINE 10 MG TABLET. PO SCH ×2 (09:17→19:44)
[2017-05-02] MEDS: ACETAMINOPHEN 325 MG TABLET PO SCH ×2 (09:17→19:44)
[2017-05-02] MEDS: SERTRALINE 50 MG TABLET. PO SCH (09:18)
[2017-05-02] MEDS: DIVALPROEX 125 MG CAP.SPRINK PO SCH ×2 (09:19→19:44)
[2017-05-02 15:37] VITALS: BP 104/63
[2017-05-02] MEDS: traZODone 100 MG TABLET. PO SCH (19:43)
[2017-05-02] MEDS: AMITRIPTYLINE HCL 50 MG TABLET PO SCH (19:44)
[2017-05-02] MEDS: MELATONIN 3 MG TABLET PO SCH (19:44)
--- NOTE | 2017-05-02 20:00 | PDOC ---
Exam Note: Brando Note: Please also refer to the separate dictated note~for this date of service dictated separately.~Patient seen individually. Discussed the patient with Nursing staff reviewed the chart.~Reviewed interim history and current functioning. Reviewed vital signs,~Labs/ Radiology~and current medications noted below. Continue current treatment with the changes noted in the dictated addendum note Assessment: Vital Signs: Vital Signs Date Time Temp Pulse Resp B/P (MAP) Pulse Ox O2 Delivery O2 Flow Rate FiO2 05/02/17 15:37 97.6 84 20 104/63 (77) 05/02/17 06:00 94 Room Air I&O Intake and Output 05/02/17 07:00 Intake Total 720 ml Balance 720 ml Intake Oral 720 ml Current Medications: Meds: Current Medications Multi-Ingredient Ointment (Analgesic [place]) 1 shanon PRN QID PRN TP MUSCLE PAIN; Start 04/17/17 at 00:45 Acetaminophen (Tylenol) 650 mg BID PO Last administered on 05/02/17 19:44; Start 04/17/17 at 01:00 Acetaminophen (Tylenol) 650 mg PRN Q8HRS PRN PO PAIN / TEMP; Start 04/17/17 at 01:00 Divalproex Sodium (Depakote Sprinkles) 250 mg DAILY PO Last administered on 05/02 09:19; Start 04/17/17 at 09:00 Divalproex Sodium (Depakote Sprinkles) 375 mg HS PO Last administered on 19:44; Start 04/17/17 at 01:00 Trazodone HCl (Desyrel) 75 mg BID@1300,1600 PO Last administered on 04/17/17 16:44; Start 04/17/17 at 13:00; Stop 04/18/17 at 10:25; Status DC Trazodone HCl (Desyrel) 75 mg HS PO Last administered on 04/22/17 19:23; Start 04/17/17 at 01:00; Stop 04/23/17 at 16:46; Status DC Melatonin 3 mg HS PO Last administered on 05/02/17 19:44; Start 04/17/17 at 01 :00 Memantine (Namenda) 10 mg BID PO Last administered on 05/02/17 19:44; Start at 09:00 Olanzapine (ZyPREXA ZYDIS) 2.5 mg PRN Q2HR PRN PO PSYCHOSIS Last administered on 04/27/17 21:29; Start 04/17/17 at 10:00 Sertraline HCl (Zoloft) 25 mg DAILY PO Last administered on 04/20/17 08:31; Start 04/18/17 at 09:00; Stop 04/20/17 at 23:00; Status DC Sertraline HCl (Zoloft) 50 mg DAILY PO Last administered on 04/26/17 08:44; Start 04/21/17 at 09:00; Stop 04/26/17 at 16:57; Status DC Mirtazapine (Remeron) 7.5 mg QHS PO Last administered on 04/18/17 19:43; Start 04/17/17 at 21:00; Stop 04/19/17 at 18:36; Status DC Trazodone HCl (Desyrel) 50 mg BID@1300,1600 PO Last administered on 04/29/17 16 :58; Start 04/18/17 at 13:00; Stop 04/29/17 at 18:58; Status DC Sertraline HCl (Zoloft) 12.5 mg BID92 PO ; Start 04/18/17 at 14:00; Status Cancel Quetiapine Fumarate (SEROquel) 12.5 mg BID92 PO Last administered on 05/02/17 13:53; Start 04/18/17 at 14:00 Mirtazapine (Remeron) 15 mg QHS PO Last administered on 04/19/17 19:12; Start 04/19/17 at 21:00; Stop 04/20/17 at 17:41; Status DC Amitriptyline HCl (Elavil) 25 mg QHS PO Last administered on 04/22/17 19:22; Start 04/20/17 at 21:00; Stop 04/23/17 at 16:46; Status DC Amitriptyline HCl (Elavil) 50 mg QHS PO Last administered on 05/02/17 19:44; Start 04/23/17 at 21:00 Trazodone HCl (Desyrel) 100 mg HS PO Last administered on 05/02/17 19:43; Start 04/23/17 at 21:00 Sertraline HCl (Zoloft) 75 mg DAILY PO Last administered on 05/02/17at 09:18; Start 04/27/17 at 09:00 Trazodone HCl (Desyrel) 100 mg PRN QHS PRN PO INSOMNIA Last administered on 05/01at 20:39; Start 04/29/17 at 19:00 Active Scripts Active Reported Tylenol (Acetaminophen) 325 Mg Tablet 650 Mg PO BID Tylenol (Acetaminophen) 325 Mg Tablet 650 Mg PO PRN Q8HRS PRN Trazodone Hcl 50 Mg Tablet 75 Mg PO BID@1300,1600 Trazodone Hcl 50 Mg Tablet 75 Mg PO HS Namenda Xr (Memantine Hcl) 28 Mg Cap.spr.24 28 Mg PO DAILY Melatonin 3 Mg Tablet 3 Mg PO HS Depakote Sprinkle (Divalproex Sodium) 125 Mg Cap.sprink 375 Mg PO HS Depakote Sprinkle (Divalproex Sodium) 125 Mg Cap.sprink 250 Mg PO DAILY I have reviewed the current psychotropics carefully including drug interactions. Risk benefit ratio favors no change other than as noted in my dictated progress note. Diagnosis: Problems: (1) Aggressive behavior (2) Anxiety disorder (3) Impulse control disorder (4) Dementia, vascular, with depression (5) Dementia, vascular, with delusions (6) Dementia in Alzheimer's disease with depression (7) Dementia in Alzheimer's disease with delusions BOBO VALENZUELA MD May 02, 2017 20:00
[2017-05-02] MEDS: traZODone 100 MG TABLET. PO PRN (23:03)
[2017-05-03] MEDS ORDERED: AMIT50TA PO (01:36)
[2017-05-03] MEDS ORDERED: OLAN5TAB5 PO (01:37)
[2017-05-03] MEDS ORDERED: SERT50TA PO (01:38)
[2017-05-03] MEDS ORDERED: QUET25TA PO (01:38)
[2017-05-03] MEDS ORDERED: TRAZ-90 PO ×2 (01:39→01:40)
[2017-05-03] MEDS ORDERED: METH29OI TP (01:42)
[2017-05-03 05:40] VITALS: BP 123/70
[2017-05-03 07:37] LABS: BASO % 1 % (0-3); EOS # 0.2 x10^3/uL (0.0-0.7); EOS % 4 % (0-3); HEMOGLOBIN 15.8 g/dL (13.0-17.5); LYMPH # 1.5 x10^3/uL (1.0-4.8); LYMPH % 23 % (24-48); MEAN CORPUSCULAR HEMOGLOBIN 31 pg (25-35); MEAN CORPUSCULAR HGB CONC 34 g/dL (31-37); MEAN CORPUSCULAR VOLUME 94 fL (79-100); MONO # 0.8 x10^3/uL (0.0-1.1); MONO % 12 % (0-9); NEUT % 61 % (31-73); PLATELET COUNT 203 x10^3/uL (140-400); RED BLOOD COUNT 5.03 x10^6/uL (4.30-5.70); RED CELL DISTRIBUTION WIDTH 12.4 % (11.5-14.5); WHITE BLOOD COUNT 6.5 x10^3/uL (4.0-11.0)
[2017-05-03 07:59] LABS: ALBUMIN 3.7 g/dL (3.4-5.0); ALBUMIN/GLOBULIN RATIO 0.9 (1.0-1.7); CALCIUM 9.4 mg/dL (8.5-10.1); CREATININE 1.2 mg/dL (0.7-1.3); GFR 57.8; POTASSIUM 3.9 mmol/L (3.5-5.1); TOTAL BILIRUBIN 0.3 mg/dL (0.2-1.0); TOTAL PROTEIN 7.9 g/dL (6.4-8.2)
[2017-05-03] MEDS: DIVALPROEX 125 MG CAP.SPRINK PO SCH (08:25)
[2017-05-03] MEDS: QUEtiapine 25 MG TABLET. PO SCH (08:25)
[2017-05-03] MEDS: SERTRALINE 50 MG TABLET. PO SCH (08:25)
[2017-05-03] MEDS: ACETAMINOPHEN 325 MG TABLET PO SCH (08:26)
[2017-05-03] MEDS: MEMANTINE 10 MG TABLET. PO SCH (08:26)
--- NOTE | 2017-05-03 18:21 | PDOC ---
Exam Note: Brando Note: Please also refer to the separate dictated note~for this date of service dictated separately.~Patient seen individually. Discussed the patient with Nursing staff reviewed the chart.~Reviewed interim history and current functioning. Reviewed vital signs,~Labs/ Radiology~and current medications noted below. Continue current treatment with the changes noted in the dictated addendum note Assessment: Vital Signs: Vital Signs Date Time Temp Pulse Resp B/P (MAP) Pulse Ox O2 Delivery O2 Flow Rate FiO2 05/03/17 05:40 97.3 61 16 123/70 (87) 100 05/02/17 06:00 Room Air I&O Intake and Output 05/03/17 07:00 Intake Total 660 ml Balance 660 ml Intake Oral 660 ml Labs: Laboratory Tests Test 05/03/17 07:21 White Blood Count 6.5 x10^3/uL (4.0-11.0) Red Blood Count 5.03 x10^6/uL (4.30-5.70) Hemoglobin 15.8 g/dL (13.0-17.5) Hematocrit 47.0 % (39.0-53.0) Mean Corpuscular Volume 94 fL (79-100) Mean Corpuscular Hemoglobin 31 pg (25-35) Mean Corpuscular Hemoglobin Concent 34 g/dL (31-37) Red Cell Distribution Width 12.4 % (11.5-14.5) Platelet Count 203 x10^3/uL (140-400) Neutrophils (%) (Auto) 61 % (31-73) Lymphocytes (%) (Auto) 23 % (24-48) L Monocytes (%) (Auto) 12 % (0-9) H Eosinophils (%) (Auto) 4 % (0-3) H Basophils (%) (Auto) 1 % (0-3) Neutrophils # (Auto) 4.0 x10^3uL (1.8-7.7) Lymphocytes # (Auto) 1.5 x10^3/uL (1.0-4.8) Monocytes # (Auto) 0.8 x10^3/uL (0.0-1.1) Eosinophils # (Auto) 0.2 x10^3/uL (0.0-0.7) Basophils # (Auto) 0.0 x10^3/uL (0.0-0.2) Sodium Level 142 mmol/L (136-145) Potassium Level 3.9 mmol/L (3.5-5.1) Chloride Level 102 mmol/L (98-107) Carbon Dioxide Level 32 mmol/L (21-32) Anion Gap 8 (6-14) Blood Urea Nitrogen 23 mg/dL (8-26) Creatinine 1.2 mg/dL (0.7-1.3) Estimated GFR (Cockcroft-Gault) 57.8 BUN/Creatinine Ratio 19 (6-20) Glucose Level 94 mg/dL (70-99) Calcium Level 9.4 mg/dL (8.5-10.1) Magnesium Level 2.0 mg/dL (1.8-2.4) Total Bilirubin 0.3 mg/dL (0.2-1.0) Aspartate Amino Transferase (AST) 28 U/L (15-37) Alanine Aminotransferase (ALT) 49 U/L (16-63) Alkaline Phosphatase 73 U/L (46-116) Total Protein 7.9 g/dL (6.4-8.2) Albumin 3.7 g/dL (3.4-5.0) Albumin/Globulin Ratio 0.9 (1.0-1.7) L Current Medications: Meds: Current Medications Multi-Ingredient Ointment (Analgesic Providence) 1 roberto PRN QID PRN TP MUSCLE PAIN; Start 04/17/17 at 00:45; Stop 05/03/17 at 11:34; Status DC Acetaminophen (Tylenol) 650 mg BID PO Last administered on 05/03/17 08:26; Start 04/17/17 at 01:00; Stop 05/03/17 at 11:34; Status DC Acetaminophen (Tylenol) 650 mg PRN Q8HRS PRN PO PAIN / TEMP; Start 04/17/17 at 01:00; Stop 05/03/17 at 11:34; Status DC Divalproex Sodium (Depakote Sprinkles) 250 mg DAILY PO Last administered on 05/03 08:25; Start 04/17/17 at 09:00; Stop 05/03/17 at 11:34; Status DC Divalproex Sodium (Depakote Sprinkles) 375 mg HS PO Last administered on at 19:44; Start 04/17/17 at 01:00; Stop 05/03/17 at 11:34; Status DC Trazodone HCl (Desyrel) 75 mg BID@1300,1600 PO Last administered on 04/17/17 16:44; Start 04/17/17 at 13:00; Stop 04/18/17 at 10:25; Status DC Trazodone HCl (Desyrel) 75 mg HS PO Last administered on 04/22/17 19:23; Start 04/17/17 at 01:00; Stop 04/23/17 at 16:46; Status DC Melatonin 3 mg HS PO Last administered on 05/02/17 19:44; Start 04/17/17 at 01 :00; Stop 05/03/17 at 11:34; Status DC Memantine (Namenda) 10 mg BID PO Last administered on 05/03/17 08:26; Start at 09:00; Stop 05/03/17 at 11:34; Status DC Olanzapine (ZyPREXA ZYDIS) 2.5 mg PRN Q2HR PRN PO PSYCHOSIS Last administered on 04/27/17 21:29; Start 04/17/17 at 10:00; Stop 05/03/17 at 11:34; Status DC Sertraline HCl (Zoloft) 25 mg DAILY PO Last administered on 04/20/17 08:31; Start 04/18/17 at 09:00; Stop 04/20/17 at 23:00; Status DC Sertraline HCl (Zoloft) 50 mg DAILY PO Last administered on 04/26/17 08:44; Start 04/21/17 at 09:00; Stop 04/26/17 at 16:57; Status DC Mirtazapine (Remeron) 7.5 mg QHS PO Last administered on 04/18/17 19:43; Start 04/17/17 at 21:00; Stop 04/19/17 at 18:36; Status DC Trazodone HCl (Desyrel) 50 mg BID@1300,1600 PO Last administered on 04/29/17 16 :58; Start 04/18/17 at 13:00; Stop 04/29/17 at 18:58; Status DC Sertraline HCl (Zoloft) 12.5 mg BID92 PO ; Start 04/18/17 at 14:00; Status Cancel Quetiapine Fumarate (SEROquel) 12.5 mg BID92 PO Last administered on 05/03/17 08:25; Start 04/18/17 at 14:00; Stop 05/03/17 at 11:34; Status DC Mirtazapine (Remeron) 15 mg QHS PO Last administered on 04/19/17 19:12; Start 04/19/17 at 21:00; Stop 04/20/17 at 17:41; Status DC Amitriptyline HCl (Elavil) 25 mg QHS PO Last administered on 04/22/17 19:22; Start 04/20/17 at 21:00; Stop 04/23/17 at 16:46; Status DC Amitriptyline HCl (Elavil) 50 mg QHS PO Last administered on 05/02/17 19:44; Start 04/23/17 at 21:00; Stop 05/03/17 at 11:34; Status DC Trazodone HCl (Desyrel) 100 mg HS PO Last administered on 05/02/17 19:43; Start 04/23/17 at 21:00; Stop 05/03/17 at 11:34; Status DC Sertraline HCl (Zoloft) 75 mg DAILY PO Last administered on 05/03/17 08:25; Start 04/27/17 at 09:00; Stop 05/03/17 at 11:34; Status DC Trazodone HCl (Desyrel) 100 mg PRN QHS PRN PO INSOMNIA Last administered on 05/02 23:03; Start 04/29/17 at 19:00; Stop 05/03/17 at 11:34; Status DC Active Scripts Active Reported Analgesic Providence (Methyl Salicylate/Menthol) 28 Gm Oint...g. 1 Roberto TP PRN QID PRN Trazodone Hcl 100 Mg Tablet 100 Mg PO PRN QHS PRN Trazodone Hcl 100 Mg Tablet 100 Mg PO HS Zoloft (Sertraline Hcl) 50 Mg Tablet 75 Mg PO DAILY Quetiapine Fumarate 25 Mg Tablet 12.5 Mg PO BID92 Zyprexa Zydis (Olanzapine) 5 Mg Tab.rapdis 2.5 Mg PO PRN Q2HR PRN Amitriptyline Hcl 50 Mg Tablet 50 Mg PO HS Tylenol (Acetaminophen) 325 Mg Tablet 650 Mg PO BID Tylenol (Acetaminophen) 325 Mg Tablet 650 Mg PO PRN Q8HRS PRN Namenda Xr (Memantine Hcl) 28 Mg Cap.spr.24 28 Mg PO DAILY Melatonin 3 Mg Tablet 3 Mg PO HS Depakote Sprinkle (Divalproex Sodium) 125 Mg Cap.sprink 375 Mg PO HS Depakote Sprinkle (Divalproex Sodium) 125 Mg Cap.sprink 250 Mg PO DAILY I have reviewed the current psychotropics carefully including drug interactions. Risk benefit ratio favors no change other than as noted in my dictated progress note. 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
--- NOTE | 2017-05-04 07:43 | PN ---
DATE: 05/01/2017 PSYCHIATRIC PROGRESS NOTE SUBJECTIVE: The patient was seen individually evening of 05/01/2017, staffed at a treatment team meeting earlier in the day on 05/01/2017. At the treatment team meeting, the patient's daughter, Larisa, attended and discussed the patient's history, diagnosis, current psychotropics discharge plans at length. The patient slept just 2-3/4 hours previous evening and this has been a lifelong problem for him. He sleeps off and on during the day. Appetite is 50%, confused, walking, singing, humming himself to at times. REVIEW OF SYSTEMS: No CV, , pulmonary, eye, ENT system symptoms on review. Reliability poor. MENTAL STATUS EXAM: Oriented to himself. Insight, judgment, recent and remote memory, attention, concentration, fund of knowledge poor, consistent with his diagnosis mentioned in my initial note. IMPRESSION: Major neurocognitive disorder, Alzheimer, vascular with depression, delusion, behavioral disturbance. PLAN: Continue psychotropics mentioned in my initial note. Adjust further as clinically indicated. MAN Adina VALENZUELA MD DR: REGULO/abiodun JOB#: [id number] / [id number]
--- NOTE | 2017-05-04 07:46 | PN ---
DATE: 05/02/2017 PSYCHIATRIC PROGRESS NOTE This late entry of 05/02/2017 covers elements not covered in my initial note for 05/02/2017. SUBJECTIVE: The patient slept 6-1/2 hours previous evening, which is quite an improvement for him and the repeat trazodone helped. He wandered in the hallways, refused his dinner. REVIEW OF SYSTEMS: No CV, , pulmonary, eye, ENT system symptoms on review. Reliability poor. MENTAL STATUS EXAM: Oriented to himself. Insight, judgment, recent and remote memory, attention, concentration, fund of knowledge poor, consistent with his diagnosis mentioned in my initial note. IMPRESSION: Major neurocognitive disorder, Alzheimer, vascular with depression, delusion, behavioral disturbance. Rest unchanged. PLAN: Continue psychotropics mentioned in my initial note. MAN Adina VALENZUELA MD DR: REGULO/abiodun JOB#: [id number] / [id number]
--- NOTE | 2017-05-05 20:11 | DS ---
DATE OF DISCHARGE: 05/03/2017 This is a late entry 05/03/2017 covers the elements not covered in my initial note of 05/03/2017. REASON FOR ADMISSION: Please refer to the admission history for details. Briefly, the patient is an 82-year-old male referred to us from [facility] by his primary care physician on account of worsening confusion, being verbally and physically aggressive, exit seeking, pocketing medications. Behaviors were deemed dangerous, out of control, unmanageable at the halfway. He had failed outpatient psychiatric interventions resulting in this referral, having failed psychiatric treatments which Dr. Jayjay Abbott. SIGNIFICANT FINDINGS AND CLINICAL COURSE: Following admission, the patient was seen daily individually by myself from a psychiatric standpoint, medical followup per Dr. Brown/Dr. Brito. He remained quite confused, oblivious of his surroundings, intermittently agitated, exit seeking. Adjustments were made in the psychotropics. He was having marked insomnia, which responded to the trazodone. Any behavioral impulse control was better on Depakote 250 mg a.m. and 375 at bedtime with a level of 59, therapeutic; melatonin 3 mg at bedtime, Namenda 10 mg b.i.d., trazodone 100 mg at bedtime and 50 mg b.i.d., which was being tapered, amitriptyline 50 mg at bedtime to help with the insomnia, anxiety, Zoloft 75 mg a day, Seroquel 12.5 mg b.i.d. and trazodone may repeat 100 mg at bedtime x 1 for insomnia. Overall, the patient did better with all these changes, remained confused, but less agitated, much more redirectable, sleeping much better. REVIEW OF SYSTEMS: Prior to discharge on 05/03/2017, no CV, , pulmonary, eye, ENT system symptoms on review. Reliability poor. MENTAL STATUS EXAM: Oriented to himself. Insight, judgment, recent and remote memory, attention, concentration, fund of knowledge poor, consistent with his diagnosis. CONDITION AT DISCHARGE: Improved. FINAL DIAGNOSES: Major neurocognitive disorder, Alzheimer, vascular with depression, delusion, behavioral disturbance; anxiety disorder, unspecified; impulse control disorder, unspecified. Rest unchanged from admission. DISCHARGE MEDICATIONS: Please refer to [facility]. DISCHARGE INSTRUCTIONS: Outpatient psychiatric and medical followup at the halfway. Time for discharge day management greater than 30 minutes. BOBO VALENZUELA MD DR: REGULO/abiodun JOB#: [id number] / [id number]
== END 2017-05-03 11:33 | disposition home or self-care (01) | DRG 884 ==
LOC: ER 22:38 → GEROPSY 04-17 00:28
PROVIDERS: ADMIT Psychiatry & Neurology Psychiatry; ATTEND Psychiatry & Neurology Psychiatry
DX: F01.51 Vascular dementia, unspecified severity, with behavioral disturbance (principal); G30.9 Alzheimer's disease, unspecified; F02.81 Dementia in other diseases classified elsewhere, unspecified severity, with behavioral disturbance; F63.9 Impulse disorder, unspecified; F22 Delusional disorders; F32.9 Major depressive disorder, single episode, unspecified; F41.1 Generalized anxiety disorder; G47.00 Insomnia, unspecified; Z66 Do not resuscitate; Z79.899 Other long term (current) drug therapy; Z85.46 Personal history of malignant neoplasm of prostate; Z88.8 Allergy status to other drugs, medicaments and biological substances; Z91.83 Wandering in diseases classified elsewhere
CPT/HCPCS: 36415; 80053; 80061; 80164; 81001; 81003; 82306; 82607; 83036; 83540; 83550; 83735; 84436; 84443; 84480; 85007; 85025; 86593; 87086; 93005; 99285-25